=== PATIENT | male | born 1955 | race Caucasian/White ===

== ENCOUNTER → 2018-08-16 08:49 | Outpatient (CLI) | payer BC, SELFPAY ==
[2018-08-16 10:41] LABS: ALB/GLOB Ratio 1.1 RATIO (0.9-2.4); AST(SGOT) 22 U/L (15-37); Alanine Aminotransfer ALT/SGPT 25 U/L (16-61); Albumin, Serum 3.5 g/dL (3.2-5.0); Alkaline Phosphatase 58 U/L (45-117); Anion Gap 3 (5-15); BUN 22 mg/dL (7-18); BUN/Creat Ratio 25.7 RATIO (10-20); Calcium,Total 8.3 mg/dL (8.5-10.1); Chloride 111 mmol/L (98-107); Cholesterol 163 mg/dL (200); Creatinine, Serum 0.86 mg/dL (0.70-1.30); EST Glomerular Filtration Rate 96 mL/min (>60); Est Glom Filt Rate - Afr Amer 116 mL/min (>60); Globulin 3.1 g/dL (2.2-4.2); Glucose 85 mg/dL (74-106); High Density Lipoprotein 56 mg/dL; Potassium 4.4 mmol/L (3.5-5.1); Protein, Total 6.6 g/dL (6.4-8.2); Sodium Level 141 mmol/L (136-145); Triglycerides 41 mg/dL; Very Low Density Lipoprotein 8 mg/dL (5-40)
[2018-08-16 10:42] LABS: Vitamin D,25 Hydroxy 13.5 ng/mL (29.95-100.01)
== END ==
PROVIDERS: Family Provider Family Medicine; PCP Family Medicine; Referring Provider Family Medicine; Visit Provider Family Medicine
DX: Z00.00 Encounter for general adult medical examination without abnormal findings (principal); B35.1 Tinea unguium
CPT/HCPCS: 36415; 80053; 80061; 82306; 84153; G0103

== ENCOUNTER → 2019-08-11 16:16 | Outpatient (CLI) | payer BC, SELFPAY ==
--- NOTE | 2019-08-11 16:26 | MRI_ITS ---
STUDY: MRI LEFT ELBOW REASON FOR EXAM: Male, 64 years old. left elbow tendon tear, fall -- fall 1 week ago, pain and bruising prox forearm , elbow TECHNIQUE: Standardized fat and water weighted pulse sequences were obtained in all 3 orthogonal planes. COMPARISON: None. FINDINGS: There is a small volume joint effusion of the radio-capitellum articulation. Normal radial collateral ligamentous complex. There is a tendinosis of the common extensor tendon origin with a partial deep surface tear, series 4 images 12/ and 13/. There is a small volume joint effusion of the ulnotrochlear articulation. Normal ulnar collateral ligamentous complex. There is a tendinosis of the common flexor tendon origin with a partial deep surface tear, series 4 image 16/22. The cubital tunnel is normal, with a normal ulnar nerve. There is rupture of the biceps tendon with tear from the radial tuberosity and retraction of 5.4 cm, series 5 images 18/30 through . There is fluid at the musculotendinous junction. Normal lacertus fibrosis. Normal brachialis musculotendinous insertion. Normal triceps tendon and teno-osseous insertion. Normal olecranon process. The visualized distal humerus, proximal radius, and ulna are normal. The visualized muscles of the distal arm and proximal forearm are normal. The soft tissue structures are unremarkable. MRI/Upper Ext Joint Only(Routine) IMPRESSION: Biceps tendon rupture with retraction. Tendinosis with partial tears of the common extensor and common flexor tendons. Findings are consistent with recent injury. Electronically Signed: Niko Chaney MD at 17:50 EDT , Service support ,
== END ==
PROVIDERS: PCP Family Medicine; Visit Provider Orthopaedic Surgery
DX: S46.292A Other injury of muscle, fascia and tendon of other parts of biceps, left arm, initial encounter (principal)
CPT/HCPCS: 73221

== ENCOUNTER → 2019-08-15 08:18 | Outpatient (CLI) | payer BC, SELFPAY ==
--- NOTE | 2019-08-15 08:31 | EKG12_ITS ---
Test Reason : PRE OP Blood Pressure : / mmHG Vent. Rate : 074 BPM Atrial Rate : 074 BPM P-R Int : 166 ms QRS Dur : 088 ms QT Int : 374 ms P-R-T Axes : 020 -67 013 degrees QTc Int : 415 ms Normal sinus rhythm Left axis deviation Abnormal ECG Confirmed by ANNA SALGUERO ([id number]), copy editor KATHLEEN COLE ([id number]) on 08/18/2019 1:15:55 PM Referred By: Kehinde Hooks Confirmed By:ANNA SALGUERO
[2019-08-15 08:49] LABS: Hemoglobin 16.2 g/dL (13.0-16.5); Mean Corp Hgb Conc 34.5 g/dL (32-36); Platelet Count 246 K/mm3 (150-450); RBC Distribution Width SD 42.8 fl (35.1-43.9); Red Blood Count 5.22 M/mm3 (4.6-6.2); White Blood Count 6.7 K/mm3 (4.4-11.0)
[2019-08-15 09:26] LABS: Anion Gap 7 (5-15); BUN 18 mg/dL (7-18); BUN/Creat Ratio 17.1 RATIO (10-20); Chloride 109 mmol/L (98-107); Creatinine, Serum 1.05 mg/dL (0.70-1.30); EST Glomerular Filtration Rate 75 mL/min (>60); Est Glom Filt Rate - Afr Amer 91 mL/min (>60); Glucose 98 mg/dL (74-106); Potassium 3.9 mmol/L (3.5-5.1); Sodium Level 142 mmol/L (136-145)
== END ==
PROVIDERS: PCP Family Medicine; Referring Provider Orthopaedic Surgery; Visit Provider Orthopaedic Surgery
DX: Z01.818 Encounter for other preprocedural examination (principal); Z01.810 Encounter for preprocedural cardiovascular examination
CPT/HCPCS: 36415; 80048; 85027; 93005

== ENCOUNTER 2020-06-03 07:15 | Outpatient (RCR) | payer BC, SELFPAY ==
[2020-06-03] MEDS: COVID-19 VACC, MRNA(PFIZER)/PF 30 MCG/0.3 ML SYRINGE IM (07:59)
[2020-06-24] MEDS: COVID-19 VACC, MRNA(PFIZER)/PF 30 MCG/0.3 ML SYRINGE IM (07:35)
== END 2020-06-03 23:59 ==
LOC: IMMUN 07:15
PROVIDERS: PCP Family Medicine; Visit Provider Family Medicine
DX: Z23 Encounter for immunization (principal)
CPT/HCPCS: 0001A; 0002A

== ENCOUNTER 2021-07-01 15:52 | Outpatient (CLI) | payer BC, SELFPAY ==
[2021-07-01 18:11] LABS: AST(SGOT) 18 U/L (15-37); Alanine Aminotransfer ALT/SGPT 34 U/L (16-61); Albumin, Serum 3.7 g/dL (3.2-5.0); Alkaline Phosphatase 63 U/L (45-117); Anion Gap 5 (5-15); BUN 20 mg/dL (7-18); BUN/Creat Ratio 20.1 RATIO (10-20); Calcium,Total 8.7 mg/dL (8.5-10.1); Chloride 109 mmol/L (98-107); Cholesterol 164 mg/dL (200); EST Glomerular Filtration Rate 80 mL/min (>60); Est Glom Filt Rate - Afr Amer 96 mL/min (>60); Globulin 3.6 g/dL (2.2-4.2); Glucose 95 mg/dL (74-106); High Density Lipoprotein 51 mg/dL; Potassium 4.4 mmol/L (3.5-5.1); Protein, Total 7.3 g/dL (6.4-8.2); Sodium Level 139 mmol/L (136-145)
[2021-07-01 18:13] LABS: Vitamin D,25 Hydroxy 29.6 ng/mL
== END 2021-07-01 23:59 | disposition home or self-care (01) ==
LOC: MFPLAB 15:54
PROVIDERS: PCP Family Medicine; Referring Provider Family Medicine; Visit Provider Family Medicine
DX: Z13.220 Encounter for screening for lipoid disorders (principal); E55.9 Vitamin D deficiency, unspecified; N36.8 Other specified disorders of urethra
CPT/HCPCS: 36415; 80053; 81001; 82306; 82465; 83718

== ENCOUNTER 2021-07-04 11:04 | Outpatient (CLI) | payer BC, SELFPAY ==
[2021-07-04 11:08] LABS: Bacteria 0 SEEN /hpf (None Seen); Mucous, Urine 0 SEEN /hpf (<or=2+); Red Blood Cells-Urine 0 SEEN /hpf (0-5); Squamous Epithelial Cells - UA 0 SEEN /hpf (0-5); White Blood Cells 0 SEEN /hpf (0-5)
[2021-07-04 12:12] LABS: Color, Urine Yellow (Yellow); Glucose, Dipstick Normal (Normal); Ketone-Dipstick Negative (Negative); Leukocyte Esterase-Dipstick Negative /ul (Negative); Nitrite-Dipstick Negative (Negative); Occult Blood-Urine Negative /ul (Negative); Protein-Dipstick Negative (Negative); Urine Bilirubin Dipstick Negative (Negative); Urine Clarity Clear (Clear); Urine Urobilinogen Normal (Normal)
== END 2021-07-04 23:59 | disposition home or self-care (01) ==
PROVIDERS: PCP Family Medicine; Visit Provider Family Medicine
DX: N36.8 Other specified disorders of urethra (principal); E55.9 Vitamin D deficiency, unspecified; K21.9 Gastro-esophageal reflux disease without esophagitis; Z13.220 Encounter for screening for lipoid disorders
CPT/HCPCS: 81001

== ENCOUNTER → 2021-08-12 | Outpatient (CLI) | payer BC, SELFPAY | END | disposition home or self-care (01) | PROVIDERS: PCP Family Medicine; Visit Provider Family Medicine | DX: L02.91 Cutaneous abscess, unspecified (principal) | CPT/HCPCS: 87070; 87077; 87186; 87205 ==

== ENCOUNTER 2022-03-19 23:25 | Emergency (ER) | payer BC, SELFPAY ==
[2022-03-19 23:26] VITALS: BP 149/79; PULSE 98; RESP 18; TEMP 36.2; BMI 28.8
--- NOTE | 2022-03-20 06:42 | EX.ED.UPPERE ---
HPI History of Present Illness Chief Complaint: Laceration Narrative Narrative: 66-year-old male presenting with avulsion of the distal aspect of the lateral ring finger. Does not involve the nailbed. Patient states he was peeling potatoes and caught his finger on a mandolin. He states he was able to get bleeding fairly well controlled with direct pressure. [id number]. He is not on any anticoagulation. He has minimal pain. PFSH PFSH Allergy/AdvReac Type Severity Reaction Status Date / Time No Known Allergies Allergy Verified 03/19/22 23:29 Social History Smoking Status: Never smoker ROS ROS ED Constitutional Constitutional ED: Denies chills, fever(s) or sweats Eyes Eyes: Denies blurry vision or change in vision ENT ENT ED: Denies ear pain or sore throat Cardiovascular Cardiovascular: Denies chest pain, palpitations or racing heartbeat Respiratory/Chest Respiratory/Chest: Denies cough, dyspnea or sputum Gastrointestinal Gastrointestinal: Denies abdominal pain, constipation, diarrhea, nausea or vomiting Genitourinary Genitourinary ED: Denies dysuria, hematuria or urinary frequency Musculoskeletal Musculoskeletal: Denies arthralgias, myalgias or neck pain Integumentary Reports other Details: Avulsion laceration right ring finger ; Denies abscess, Abrasions or rash Neurologic Neurologic: Denies headache(s), paresthesias or weakness Psychiatric Psychiatric: Denies anxiety, depression, suicidal ideation or suicidal thoughts Endocrine Endocrinology: Denies polydipsia or polyuria EXAM Physical Exam Const Vital Signs: 03/19/22 23:26 03/19/22 23:26 Temperature 97.2 F L 97.2 F L Temperature Source Temporal Temporal Pulse Rate 98 98 Respiratory Rate 18 18 Blood Pressure 149/79 H 149/79 H Blood Pressure Mean 102 102 Positive well nourished HEENT Reports moist mucous membranes normocephalic Eyes PERRL and EOMs intact bilaterally Resp normal respiratory effort and clear to auscultation bilaterally Cardio regular rate and regular rhythm Extremity Extremity Narrative: 2 cm avulsion of the lateral aspect of the distal ring finger. Bleeding is well controlled. No bony involvement. No nailbed involvement. Minimally tender to palpation Neuro oriented x3 and CN's II-XII intact bilaterally Sensorium / Orientation: alert Motor Exam: strength 5/5 throughout Psych mental status grossly normal Skin Skin Narrative: As described above MDM MDM MDM Narrative Medical decision making narrative: Patient with avulsed laceration to the tip of his right ring finger. There is nothing here that can be sutured. Surgicel and a direct pressure dressing were applied. This did control bleeding. He was given a leftover Surgicel for home. His tetanus is up-to-date. Patient was counseled this might bleed a little bit within the next week or so. He is counseled to apply direct pressure over this wound until it stops bleeding. He was shown how to do this. Return precautions were discussed. Impression: 1. 2 cm avulsion laceration right ring finger Lab Data Attestation: I reviewed the patient's lab results. Discharge Plan Triage Chief Complaint: Laceration ED Provider: Piero Ashley Dx/Rx/DC Orders Instructions: ED Skin Avulsion Primary Care Provider: Kendall Lance Referrals: Kendall Lance MD [Primary Care Provider] - Disposition Disposition: Home, Self Care Discharge Date/Time: 03/20/22 00:24
== END 2022-03-20 00:24 | disposition home or self-care (01) ==
LOC: ED 03-20 00:24
PROVIDERS: Emergency Provider Student in an Organized Health Care Education/Training Program; PCP Family Medicine; Visit Provider Student in an Organized Health Care Education/Training Program
DX: S61.214A Laceration without foreign body of right ring finger without damage to nail, initial encounter (principal); W23.0XXA Caught, crushed, jammed, or pinched between moving objects, initial encounter
CPT/HCPCS: 99282

== ENCOUNTER → 2023-01-25 | Outpatient (CLI) | payer BC, SELFPAY ==
[2023-01-25 13:39] LABS: Anion Gap 5 (5-15); BUN 20 mg/dL (7-18); BUN/Creat Ratio 20.7 RATIO (10-20); Calcium,Total 8.7 mg/dL (8.5-10.1); Chloride 109 mmol/L (98-107); Cholesterol 156 mg/dL (200); Creatinine, Serum 0.97 mg/dL (0.70-1.30); EST Glomerular Filtration Rate 82 mL/min (>60); Est Glom Filt Rate - Afr Amer 99 mL/min (>60); Glucose 97 mg/dL (74-106); High Density Lipoprotein 52 mg/dL; PSA,Total - Annual Screen 3.08 ng/mL (0.00-4.00); Potassium 4.3 mmol/L (3.5-5.1); Sodium Level 140 mmol/L (136-145); Triglycerides 54 mg/dL; Very Low Density Lipoprotein 11 mg/dL (5-40)
== END | disposition home or self-care (01) ==
LOC: MFPLAB 11:10
PROVIDERS: PCP Family Medicine; Visit Provider Family Medicine
DX: Z00.00 Encounter for general adult medical examination without abnormal findings (principal)
CPT/HCPCS: 36415; 80048; 80061; 84153; G0103

== ENCOUNTER 2023-04-30 09:52 | Day surgery (SDC) | payer BC, SELFPAY ==
[2023-04-30] VITALS (16 sets, daily range): BP systolic 71–136; BP diastolic 44–89; PULSE 64–106; RESP 16–20; TEMP 36.5–37.1; O2SAT 93–99; BMI 27.3
--- NOTE | 2023-04-30 10:00 | PCM.HP.BLA ---
History and Physical Date of Admission: 04/30/23 Intake Vital Signs 12/19/2312:22 04/03/2406:54 Height 5 ft 1 in 5 ft 11 in Weight: 200 lb 200 lb BMI 37.8 27.8 BP 131/72 H 156/75 H Blood Pressure Location Rt brachial Lt brachial Position Sitting Sitting Respiration 17 16 Pulse 80 Pulse Source Monitor Temp 97.2 F L Temp Source Temporal Pulse Oximetry (%) 99 Oxygen Delivery Method room air Intake Visit Reasons: Update H&P Chief Complaint: right inguinal hernia [employer] Required: No Is patient in pain?: No Allergies No Known Allergies Allergy (Verified 04/03/23 07:54) Medications cholecalciferol (vitamin D3) 75 mcg (3,000 unit) tablet 75 mcg PO DAILY 12/19/22 [History Confirmed 04/03/23] PFSH Medical History Biceps tendon tear Inguinal hernia Family History Father Cancer prostate Social History Smoking Status: Never smoker substance use type: does not use HPI HPI HPI: Patient is here to update his history and physical before hernia surgery. Patient has right inguinal hernia reports there is been no changes with his hernia. He does have a chronic cough since his last illness at [facility]. Patient also notes that he is going to see a dentist this week for broken tooth. Patient still notes reducible right inguinal hernia with no symptoms on the left side. ROS General General: No weight change, appetite, fatigue, colon cancer, breast cancer or weakness HEENT HEENT: No difficulty swallowing, eye injury, eye surgery, swollen glands or hoarseness Endo Endocrine: No thyroid disease, diabetes mellitus, thyroid cancer, Hair loss, heat intolerance or cold intolerance Skin Skin: No rash or changing moles Musc Musculoskeletal: No back problems, arthritis, rheumatoid arthritis, gout or joint pain Cardio Cardiovascular: No murmur, pacemaker, heart disease, atrial fibrillation, high blood pressure, heart attack, heart stent, palpitations, shortness of breat with exertion or chest pain Psych Psychiatric: No depression, anxiety or hearing voices Resp Respiratory: No shortness of breath, No sleep apnea, No cough, No COPD, No asthma, No emphysema and No wheezing Gastro Gastrointestinal: No abdominal pain, No nausea or vomiting, No diarrhea, No constipation, No blood in stool, No acid reflux, No hemorrhoids, No ulcers, No gallbladder problem and No black,tarry stools Kelechi Hematologic: No blood thinners, No blood disorders, No bleeding, No anemia and No blood clots Neuro Neurologic: No system reviewed and no additional complaints, except as documented, No as per HPI, No abnormal gait, No abnormal hearing, No abnormal movements, No abnormal speech, No behavioral changes, No burning sensations, No confusion, No convulsions, No disequilibrium, No dizziness, No localized weakness, No frequent falls, No headache(s), No lack of coordination, No loss of vision, No memory loss, No numbness, No other visual disturbances, No radicular pain, No restless legs, No sensory deficit, No syncope, No tingling, No tremor(s), No weakness and No other Exam Const General: cooperative Orientation: alert and oriented x3 HENMT Head: normal to inspection Neck Neck: normal visual inspection and full ROM Chest Chest palpation & inspection: normal inspection of the chest Resp Effort & Inspection: normal respiratory effort Auscultation: clear to auscultation bilaterally Cardio Rate: regular rate Rhythm: regular rhythm GI Inspection: non-distended Palpation: soft, hernia indirect inguinal on the right and nontender Skin General: no rashes or lesions noted Neuro General: patient alert and patient oriented x3 Extrem General: full ROM Psych Appearance: grossly normal Mental Status: mental status grossly normal Assessment and Plan Assessment and Plan (1) Inguinal hernia: Status: Acute Qualifiers: Obstruction and gangrene presence: without obstruction or gangrene Laterality: unilateral Recurrence: non-recurrent Qualified Code(s): K40.90 - Unilateral inguinal hernia, without obstruction or gangrene, not specified as recurrent Plan: The patient has a right inguinal hernia which is reducible. He was waiting until winter to have this fixed and he presents for updated the H&P before surgery. I discussed robotic assisted laparoscopic right inguinal hernia repair with mesh once more with the patient. I answered all of his questions. I will plan for surgery later this month. Michael August MD Pager: [facility] [address] [place] [address] [address] [place] [address] Office: I have examined the patient and the H&P has been reviewed. There are no clinical changes since date of exam.
[2023-04-30] MEDS: Lactated Ringers 1,000 ML 15 ML IV ×3 (10:18→14:20)
--- OUTSIDE RECORDS SUMMARY | 2023-04-30 10:48 | XMS RPT_ITS | CCD ---
Author Name Unknown Address [address] [facility] [address] [place] [address] Organization [facility] Care Team Providers Care Silk Winding Machine Operator Name Role Phone Kendall Vaughan MD Primary Care Provider KENDALL VAUGHAN Primary Care Unavailable KENDALL VAUGHAN Primary Care Unavailable Medications Completed/Discontinued Medications Medication Drug Class(es) Dates Sig (Normalized) Sig (Original) cholecalciferol, vitamin D3, (VITAMIN D3 ORAL) (3 sources) cholecalciferol, vitamin D3, (VITAMIN D3 ORAL) Take by mouth. 0 Active Problems Problem Classification Problem Date Documented Da te Episodic/Chronic Genitourinary symptoms and ill-defined conditions (1 source) Isaias hematuria; Translations: [Gross hematuria] 12-09-2022 Episodic Results Test Name Value Interpretation Reference Range Facil ity Vital Signs Date Time Vital Sign Value Performing Clinician Cinthia perez 12-09-2022 09:20-0400 Body temperature 98.4 [degF] Nicole Praisler-Wood PREMIUM SERVICE REPRESENTATIVE.COMMERCIAL FISHING VESSEL OPERATOR Work Phone: [facility] 12-09-2022 09:20-0400 Body weight 90.54 kg Nicole Praisler-Wood PREMIUM SERVICE REPRESENTATIVE.COMMERCIAL FISHING VESSEL OPERATOR Work Phone: [facility] 12-09-2022 09:20-0400 Diastolic blood pressure 92 mm[Hg] Nicole Praisler-Wood PREMIUM SERVICE REPRESENTATIVE.COMMERCIAL FISHING VESSEL OPERATOR Work Phone: [facility] 12-09-2022 09:20-0400 Heart rate 72 /min Nicole Praisler-Wood PREMIUM SERVICE REPRESENTATIVE.COMMERCIAL FISHING VESSEL OPERATOR Work Phone: [facility] 12-09-2022 09:20-0400 Respiratory rate 16 /min Nicole Praisler-Wood PREMIUM SERVICE REPRESENTATIVE.COMMERCIAL FISHING VESSEL OPERATOR Work Phone: [facility] 12-09-2022 09:20-0400 SaO2% (BldA) [Mass fraction] 98 % Nicole Henderson APRN.DARLING Work Phone: [facility] 12-09-2022 09:20-0400 Systolic blood pressure 142 mm[Hg] Nicole Henderson APRN.DARLING Work Phone: [facility] Encounters Encounter Date Encounter Type Care Provider Facility Start: 03-12-2023 Telephone encounter Sidney dumont PREMIUM SERVICE REPRESENTATIVE.DARLING Work Phone: [facility] Procedures Date Procedure Procedure Detail Performing Clinician Start: 12-09-2022 Urnls dip stick/tabl et rgnt auto w/o microscopy Nicole Henderson APRN.DARLING Work Phone: Plan of Treatment Date Care Activity Detail Author Start: 09-01-2031 Urine microalbumin profile DTaP,Tdap,Td Vaccine (3 - Td or Tdap) [facility] Start: 12-01-2022 Influenza vaccination INFLUENZA (#1) [facility] Start: 05-21-2022 COVID-19 VACCINE (5 - Pfizer series) COVID-19 VACCINE (5 - Pfizer series) [facility] Start: 04-02-2022 ADVANCE DIRECTIVE DISCUSSION ADVANCE DIRECTIVE DISCUSSION [facility] Start: 04-02-2022 DEPRESSION ASSESSMENT DEPRESSION ASSESSMENT [facility] Start: 06-23-2019 PNEUMOCOCCAL: 65+ (1 - PCV) PNEUMOCOCCAL: 65+ (1 - PCV) [facility] Start: 2014 RSV Vaccine (1 - 1-dose 60+ series) RSV Vaccine (1 - 1-dose 60+ series) [facility] Start: 2009 PROSTATE CANCER SCREENING DISCUSSION PROSTATE CANCER SCREENING DISCUSSION [facility] Start: 2004 SHINGRIX VACCINE (1 of 2) SHINGRIX VACCINE (1 of 2) [facility] Start: 06-23-1999 COLOGUARD (FIT-DNA) COLOGUARD (FIT-DNA) [facility] Start: 06-23-1999 Colonoscopy COLONOSCOPY [facility] Start: 06-23-1999 COLORECTAL CANCER SCREENING COLORECTAL CANCER SCREENING [facility] Start: 06-23-[address] COLONOGRAPHY [facility] Start: 06-23-1999 DIABETES SCREEN DIABETES SCREEN [facility] Start: 06-23-1999 Diabetes Screening Diabetes Screening [facility] Start: 06-23-1999 FECAL OCCULT BLOOD FECAL OCCULT BLOOD [facility] Start: 06-23-1999 SIGMOIDOSCOPY SIGMOIDOSCOPY [facility] Start: 1989 Lipid 1996 panel - Serum or Plasma Lipid Screening [facility] Start: 1989 LIPID SCREEN LIPID SCREEN [facility] Start: 1973 Urine microalbumin profile DTAP,TDAP,TD (1 - Tdap) [facility] Start: 1972 HEPATITIS C SCREENING HEPATITIS C SCREENING [facility] Bacteria identified in Urine by Culture URINE CULTURE Microbiology Routine Gross hematuria 12/09/2022 10:59 AM EDT [facility] Work Phone: Payers Date Payer Category Payer Unknown [employer] PPO OOS [id number] 2022-Present [phone] [address] [place] [address] PPO [id number] 2022 Unknown [id number] Social History Date Type Detail Facility Start: 03-11-2023 Tobacco smoking stat [facility] Never smoked tobacco [facility] Work Phone: Start: 10-04-2006 End: 03-11-2023 Alcohol intake Current non-drinker of alcohol (finding) [facility] Start: 1955 Sex Assigned At Not on file [facility] Start: 03-11-2023 [facility] Start: 03-11-2023 Tobacco use and exposure Smokeless tobacco non-user [facility] Start: 03-11-2023 History of Social function [facility] Start: 1955 Sex Assigned At Male [facility] Start: 02-10-2023 Gender identity Identifies as male gender (finding) [facility] Start: 02-10-2023 Sexual orientation Heterosexual (erma cruz) [facility] Note 03-12-2023 Telephone Encounter - Mireya Freeman LPN - 03/12/2023 9:46 AM ESTTelephone Encounter - Sidney Weir APRN.CNP - 03/12/2023 7:27 AM EST Note Date & Type Note Facility 03-12-2023 Miscellaneous Notes Formattin g of this note might be different from the original. Spoke with pt and information listed below given. Pt verbalizes understanding. Mireya Freeman LPN Please notify positive for covid. Patient can contact pcp to discuss oral treatment for covid if desired. documented in this encounter [facility] Progress note 03-11-2023 Note Date & Type Note Facility 03-11-2023 Note HNO ID: [id number] Author: Leyda Angel APRN.DARLING Service: ? Author Type: Nurse Practitioner Type: Progress Notes Filed: 03/11/2023 12:27 PM Note Text: This note was created using [employer]akSoftriter. Subjective Hans Luna is a 67 year old male. 67 year old male with no significant PMH presents for illness. Acute onset yesterday +headache +frontal 10/09 +nasal congestion +leg cramps and pain +cough +fatigue +fever 103 Denies N/V/D Taking Tylenol The history is provided by the patient. No foreign language stenographer was used. URI He complains of cough. There is no chest tightness, difficulty breathing, frequent throat clearing, hemoptysis, hoarse voice, shortness of breath, sputum production or wheezing. This is a new problem. The current episode started yesterday. The problem occurs constantly. The problem has been unchanged. The cough is non-productive. Associated symptoms include a fever, headaches, malaise/fatigue, myalgias, nasal congestion, postnasal drip, rhinorrhea and sneezing. Pertinent negatives include no appetite change, chest pain, dyspnea on exertion, ear congestion, ear pain, orthopnea, PND, sore throat, sweats, trouble swallowing or weight loss. His symptoms are aggravated by nothing. His symptoms are alleviated by nothing. He reports no improvement on treatment. There are no known risk factors for lung disease. There is no history of asthma, bronchiectasis, bronchitis, COPD, emphysema or pneumonia. No past medical history on file. PAST SURGICAL HISTORY Procedure Laterality Date NONE ALLERGIES Patient has no known allergies. MEDICATIONS cholecalciferol, vitamin D3, (VITAMIN D3 ORAL) Take by mouth. ketoconazole 200 mg ORAL Tab ii now; ii at 7 AND 14 days--with orange juice or carbonated beverage (Patient not taking: Reported on 12/09/2022) selenium sulfide 2.5 % TOPICAL Sham qod face, chest, back, scalp as second lather--lather, wait 5 minutes, rinse off (Patient not taking: Reported on 12/09/2022) ketoconazole 2 % TOPICAL Crea q day ears (Patient not taking: Reported on 12/09/2022) hydrocortisone 2.5 % TOPICAL Crea qhs ears (Patient not taking: Reported on 12/09/2022) FAMILY HISTORY Problem Relation Age of Onset None Mother None Father Social History Tobacco Use Smoking status: Never Smokeless tobacco: Never Substance Use Topics Alcohol use: No Review of Systems Constitutional: Positive for fever and malaise/fatigue. Negative for appetite change and weight loss. HENT: Positive for congestion, postnasal drip, rhinorrhea and sneezing. Negative for ear pain, hoarse voice, sore throat and trouble swallowing. Eyes: Negative for pain, discharge and itching. Respiratory: Positive for cough. Negative for apnea, hemoptysis, sputum production, chest tightness, shortness of breath and wheezing. Cardiovascular: Negative for chest pain, dyspnea on exertion, palpitations, leg swelling and PND. Gastrointestinal: Negative for abdominal pain, diarrhea, nausea and vomiting. Musculoskeletal: Positive for myalgias. Negative for arthralgias and back pain. Skin: Negative for color change, pallor, rash and wound. Allergic/Immunologic: Negative for environmental allergies, food allergies and immunocompromised state. Neurological: Positive for headaches. Negative for dizziness and facial asymmetry. Hematological: Negative for adenopathy. Does not bruise/bleed easily. Psychiatric/Behavioral: Negative for agitation and behavioral problems. Objective BP 148/81 Pulse 89 Temp 37.6 ?C (99.7 ?F) Resp 20 Wt 91.6 kg (202 lb) SpO2 99% Physical Exam Vitals and nursing note reviewed. Constitutional: General: He is not in acute distress. Appearance: Normal appearance. He is not ill-appearing, toxic-appearing or diaphoretic. HENT: Head: Normocephalic and atraumatic. Right Ear: External ear normal. Left Ear: External ear normal. Nose: Congestion present. No rhinorrhea. Mouth/Throat: Mouth: Mucous membranes are moist. Pharynx: Oropharynx is clear. Posterior oropharyngeal erythema present. No oropharyngeal exudate. Eyes: General: Right eye: No discharge. Left eye: No discharge. Extraocular Movements: Extraocular movements intact. Conjunctiva/sclera: Conjunctivae normal. Pupils: Pupils are equal, round, and reactive to light. Cardiovascular: Rate and Rhythm: Normal rate and regular rhythm. Pulses: Normal pulses. Heart sounds: Normal heart sounds. No murmur heard. No friction rub. No gallop. Pulmonary: Effort: Pulmonary effort is normal. No respiratory distress. Breath sounds: Normal breath sounds. No stridor. No wheezing, rhonchi or rales. Chest: Chest wall: No tenderness. Abdominal: General: Abdomen is flat. There is no distension. Palpations: Abdomen is soft. There is no mass. Tenderness: There is no abdominal tenderness. There is no guarding or rebound. Hernia: No hernia is present. Musculoskele (more content not included)... [facility] Note 12-10-2022 Telephone Encounter - Meseret Dorsey - 12/10/2022 1:48 PM EDTTelephone Encounter - Meseret Dorsey - 12/10/2022 1:47 PM EDT Note Date & Type Note Facility 12-10-2022 Miscellaneous Notes Formattin g of this note might be different from the original. Patient given results and verbalized understanding of instructions given. Meseret Doresy ----- Message from Nicole Henderson APRN.CNP sent at 12/10/2022 1:19 PM EDT ----- Please advise patient the urine culture was negative. Recommend follow up with his PCP to ensure hematuria has resolved. Nicole Henderson APRN.CNP documented in this encounter [facility] Progress note 12-09-2022 Note Date & Type Note Facility 12-09-2022 Note HNO ID: [id number] Author: Nicole Henderson APRN.COMMERCIAL FISHING VESSEL OPERATOR Service: ? Author Type: Nurse Practitioner Type: Progress Notes Filed: 12/09/2022 11:02 AM Note Text: Subjective Hematuria Irritative symptoms do not include frequency or urgency. Pertinent negatives include no abdominal pain, chills, dysuria, fever, flank pain, nausea or vomiting. Hans Luna is a 67 year old male who presents with blood in his urine. This happened last night after running for 3 miles then going for a walk. He denies any symptoms other than hematuria and that seems to be resolving, states his urine is almost normal this morning. Review of Systems Constitutional: Negative for chills and fever. Respiratory: Negative. Cardiovascular: Negative. Gastrointestinal: Negative for abdominal pain, nausea and vomiting. Genitourinary: Positive for hematuria. Negative for dysuria, flank pain, frequency and urgency. Musculoskeletal: Negative for back pain. BP 142/92 Pulse 72 Temp 36.9 ?C (98.4 ?F) Resp 16 Wt 90.5 kg (199 lb 9.6 oz) SpO2 98% No past medical history on file. PAST SURGICAL HISTORY Procedure Laterality Date NONE ALLERGIES Patient has no known allergies. MEDICATIONS cholecalciferol, vitamin D3, (VITAMIN D3 ORAL) Take by mouth. ketoconazole 200 mg ORAL Tab ii now; ii at 7 AND 14 days--with orange juice or carbonated beverage (Patient not taking: Reported on 12/09/2022) selenium sulfide 2.5 % TOPICAL Sham qod face, chest, back, scalp as second lather--lather, wait 5 minutes, rinse off (Patient not taking: Reported on 12/09/2022) ketoconazole 2 % TOPICAL Crea q day ears (Patient not taking: Reported on 12/09/2022) hydrocortisone 2.5 % TOPICAL Crea qhs ears (Patient not taking: Reported on 12/09/2022) FAMILY HISTORY Problem Relation Age of Onset None Mother None Father Social History Tobacco Use Smoking status: Never Substance Use Topics Alcohol use: No Objective Physical Exam Vitals and nursing note reviewed. Constitutional: General: He is not in acute distress. Appearance: Normal appearance. He is not ill-appearing. Cardiovascular: Rate and Rhythm: Normal rate and regular rhythm. Heart sounds: Normal heart sounds. Pulmonary: Effort: Pulmonary effort is normal. No respiratory distress. Breath sounds: Normal breath sounds. No wheezing or rales. Abdominal: General: There is no distension. Palpations: Abdomen is soft. There is no mass. Tenderness: There is no abdominal tenderness. There is no right CVA tenderness, left CVA tenderness or guarding. Skin: General: Skin is warm and dry. Neurological: Mental Status: He is alert. ASSESSMENT/PLAN: 1. Gross hematuria - ICD9: 599.71, ICD10: R31.0 - UA DIP, URINE (POC)- positive for small amount of bilirubin, large amount of blood, and 30 mg/dL protein. Send for culture. Treat if indicated by culture results. If negative, recommend follow up with PCP or urology to ensure hematuria has resolved. - URINE CULTURE - Follow-up with your PCP in 3-5 days if symptoms have not improved or sooner if symptoms worsen - Discussed red flags and need for immediate medical evaluation if any occur. - Discussed supportive care treatment with fluids, rest and analgesia. - Discussed expected course of illness Nicole Henderson APRN.CNP [facility] Instructions 12-09-2022 Patient Instructions Note Date & Type Note Facility 12-09-2022 Instructions Nicole Henderson APRN.CNP - 12/09/2022 10:58 AM EDT ASSESSMENT/PLAN: 1. Gross hematuria - ICD9: 599.71, ICD10: R31.0 - UA DIP, URINE (POC)- positive for small amount of bilirubin, large amount of bleed, and 30 mg/dL protein. Send for culture. Treat if indicated by culture results. If negative, recommend follow up with PCP or urology to ensure hematuria has resolved. - URINE CULTURE - Follow-up with your PCP in 3-5 days if symptoms have not improved or sooner if symptoms worsen - Discussed red flags and need for immediate medical evaluation if any occur. - Discussed supportive care treatment with fluids, rest and analgesia. - Discussed expected course of illness Nicole Henderson APRN.CNP HEMATURIA What is hematuria? Hematuria is the presence of red blood cells in the urine. In microscopic hematuria , the urine appears normal to the naked eye, but examination with a microscope shows a number of red blood cells. Gross hematuria can be seen with the naked eye-the urine is red, pink, or the color of cola. What causes hematuria? Several conditions can cause hematuria. For example, exercise may cause hematuria that goes away in 24 hours. Many people have hematuria without any other related problems. Often no specific cause can be found. But because hematuria may be the result of a tumor or other serious problem, a doctor should be consulted. How is hematuria diagnosed? To find the cause of hematuria, or to rule out certain causes, the doctor may order a series of tests, including urinalysis, blood tests, kidney imaging studies, and cystoscopic examination. A urinalysis is the examination of urine for various cells and chemicals. In addition to finding red blood cells, the doctor may find white blood cells that signal a urinary tract infection or casts, which are groups of cells molded together in the shape of the kidneys' tiny filtering tubes, which signal kidney disease. Excessive protein in the urine also signals kidney disease. FISH is a noninvasive, urine-based genetic test for the diagnosis and surveillance of bladder cancer. It provides the most sensitive detection of bladder cancer available today - and can detect bladder cancer up to six months sooner than other tests. Blood tests may reveal kidney disease if the blood contains high levels of wastes that the kidneys are supposed to remove. Kidney imaging studies include ultrasound, computerized tomography (CT) scan, or intravenous pyelogram (IVP). An IVP is an x ray of the urinary tract. Imaging studies may reveal a tumor, a kidney or bladder stone, an enlarged prostate or other blockage to the normal flow of urine. A cystoscope can be used to evaluate and visualize inside of the bladder. It has a tiny camera at the end of a thin tube, which is inserted through the urethra. A cystoscope may provide a better view of a tumor or bladder stone than can be seen in an IVP. How is hematuria treated? Treatment for hematuria depends on the cause. If no serious condition is causing the hematuria, no treatment is necessary. documented in this encounter [facility] History of Present illness Narrative 12-09-2022 Nicole Henderson APRN.COMMERCIAL FISHING VESSEL OPERATOR - 12/09/2022 9:38 AM EDT Note Date & Type Note Facility 12-09-2022 History of Presen t illness Narrative Subjective Hematuria Irritative symptoms do not include frequency or urgency. Pertinent negatives include no abdominal pain, chills, dysuria, fever, flank pain, nausea or vomiting. Hans Luna is a 67 year old male who presents with blood in his urine. This happened last night after running for 3 miles then going for a walk. He denies any symptoms other than hematuria and that seems to be resolving, states his urine is almost normal this morning. Review of Systems Constitutional: Negative for chills and fever. Respiratory: Negative. Cardiovascular: Negative. Gastrointestinal: Negative for abdominal pain, nausea and vomiting. Genitourinary: Positive for hematuria. Negative for dysuria, flank pain, frequency and urgency. Musculoskeletal: Negative for back pain. BP 142/92 Pulse 72 Temp 36.9 C (98.4 F) Resp 16 Wt 90.5 kg (199 lb 9.6 oz) SpO2 98% No past medical history on file. PAST SURGICAL HISTORY Procedure Laterality Date NONE ALLERGIES Patient has no known allergies. MEDICATIONS cholecalciferol, vitamin D3, (VITAMIN D3 ORAL) Take by mouth. ketoconazole 200 mg ORAL Tab ii now; ii at 7 & 14 days--with orange juice or carbonated beverage (Patient not taking: Reported on 12/09/2022) selenium sulfide 2.5 % TOPICAL Sham qod face, chest, back, scalp as second lather--lather, wait 5 minutes, rinse off (Patient not taking: Reported on 12/09/2022) ketoconazole 2 % TOPICAL Crea q day ears (Patient not taking: Reported on 12/09/2022) hydrocortisone 2.5 % TOPICAL Crea qhs ears (Patient not taking: Reported on 12/09/2022) FAMILY HISTORY Problem Relation Age of Onset None Mother None Father Social History Tobacco Use Smoking status: Never Substance Use Topics Alcohol use: No Objective Physical Exam Vitals and nursing note reviewed. Constitutional: General: He is not in acute distress. Appearance: Normal appearance. He is not ill-appearing. Cardiovascular: Rate and Rhythm: Normal rate and regular rhythm. Heart sounds: Normal heart sounds. Pulmonary: Effort: Pulmonary effort is normal. No respiratory distress. Breath sounds: Normal breath sounds. No wheezing or rales. Abdominal: General: There is no distension. Palpations: Abdomen is soft. There is no mass. Tenderness: There is no abdominal tenderness. There is no right CVA tenderness, left CVA tenderness or guarding. Skin: General: Skin is warm and dry. Neurological: Mental Status: He is alert. ASSESSMENT/PLAN: 1. Gross hematuria - ICD9: 599.71, ICD10: R31.0 - UA DIP, URINE (POC)- positive for small amount of bilirubin, large amount of blood, and 30 mg/dL protein. Send for culture. Treat if indicated by culture results. If negative, recommend follow up with PCP or urology to ensure hematuria has resolved. - URINE CULTURE - Follow-up with your PCP in 3-5 days if symptoms have not improved or sooner if symptoms worsen - Discussed red flags and need for immediate medical evaluation if any occur. - Discussed supportive care treatment with fluids, rest and analgesia. - Discussed expected course of illness Nicole Henderson APRN.COMMERCIAL FISHING VESSEL OPERATOR documented in this encounter [facility] Evaluation note Note Date & Type Note Facility documented in this encounter [facility] Health Concerns Infection Onset Date Last Indicated Resolved Time COVID-19 Confirmed 03/11/2023 03/11/2023 Summary Purpose Family History No Family History Records Found Advance Directives No Advanced Directives Records Found Additional Source Comments Source Comments (unrecognize d section and content) In the event this informatio n is protected by the Federal Confidentiality of Alcohol and Drug Abuse Patient Records regulations: The Federal rules restrict any use of the information to criminally investigate or prosecute any alcohol or drug abuse patient.[facility] the event this information is protected by the Federal Confidentiality of Alcohol and Drug Abuse Patient Records regulations: The Federal rules restrict any use of the information to criminally investigate or prosecute any alcohol or drug abuse patient.[facility] Hospital[facility] the event this information is protected by the Federal Confidentiality of Alcohol and Drug Abuse Patient Records regulations: The Federal rules restrict any use of the information to criminally investigate or prosecute any alcohol or drug abuse patient[facility] Reason for Visit (unrecogniz ed section and content) Reason Comments Results Care Teams (unrecognized sec tion and content) Silk Winding Machine Operator Relationship Specialty Start Date End Date Kendall Vaughan MD [address] [place] [address] [address] [place] [address] PCP - General Family Medicine 12/09/22 Silk Winding Machine Operator Relationship Specialty Start Date End Date Kendall Vaughan MD [address] [place] [id number] PCP - General Family Medicine 12/09/22 (unrecognized sect ion and content) No Status Records Found INFORMATION SOURCE (unrecogn ized section and content) FOR RECORDS PERTAINING TO PATIENTS WHO ARE OR HAVE BEEN ENROLLED IN A CHEMICAL DEPENDENCY/SUBSTANCEABUSE PROGRAM, SOME INFORMATION MAY BE OMITTED. This clinical summary was aggregated from multiple sources. Caution should be exercised in using it in the provision of clinical care. This summary normalizes information from multiple sources, and as a consequence, information in this document may materially change the coding, format and clinical context of patient data. In addition, data may be omitted in some cases. CLINICAL DECISIONS SHOULD BE BASED ON THE PRIMARY CLINICAL RECORDS. [facility]. provides no warranty or guarantee of the accuracy or completeness of information in this document.
[2023-04-30] MEDS: Cefazolin 2 GM in 0.9% Normal Saline (100mL Bag) 100 ML IV (11:09)
[2023-04-30] MEDS: Bupivacaine Mpf 0.5% 30 ML VIAL (12:04)
--- NOTE | 2023-04-30 12:07 | OP.PCM_ITS ---
Report of Operation Date of Procedure: 04/30/23 Pre-Operative Diagnosis: Right inguinal hernia Post-Operative Diagnosis: Same Surgery/Procedure Performed:: Robotic assisted laparoscopic right inguinal hernia repair with mesh Type of Anesthesia: General/Regional Specimen's removed: None Estimated Blood Loss (mL): 10 Description of Procedure: Patient was brought back to the operating room and general anesthesia was induced. The abdomen was prepped and draped in usual sterile fashion. Incision was made superior to the umbilicus and the fascia was grasped and elevated. A Veress needle was placed into the abdomen and a drop test was performed. Next the abdomen was then inflated to 15 mmHg. The Veress needle was removed. Port was placed into the abdomen. Camera was placed in the abdomen there were no injuries from entry. The patient was placed in Trendelenburg position. Patient had a right inguinal hernia and no left inguinal hernia. Under direct visua lization two 8 mm ports were placed on the lateral sidewalls. The robot was then docked. An incision was made in the peritoneum in the right lower quadrant and dissection was carried inferiorly. The hernia sac was reduced and all of its attachments were taken down. Once it was fully reduced dissection was carried most posteriorly. Next a piece of ProGrip mesh was unfolded in the right groin and completely covered both hernia areas. Next the peritoneum was reapproximated using a running 3 OV lock suture. There were 2 openings in the peritoneum that were closed with interrupted 3-0 Vicryl sutures. At the end of the case the mesh was completely covered by peritoneum. Next the the incisions were injected with local anesthetic. Robot was undocked and the ports were removed and the abdomen was allowed to desufflate. Closed with interrupted 4-0 Monocryl sutures. Steri-Strips and bandages were applied. Scrotum was checked at the end of the case and contained testicles. Patient was awoken and taken to PACU in stable condition. Grafts/Implants Used: ProGrip mesh in the right inguinal region Admit VTE Documentation VTE Mechan Device Prophylaxis: SCD's
--- NOTE | 2023-04-30 12:11 | DCINST_ITS ---
Discharge Instructions Procedure Hernia Diet Discharge Diet: Light diet - advance as tolerated Activity Discharge Activity: May Not Drive (for 2-3 days or while taking narcotic pain meds.) and May Shower (with the bandage in place 1-2 days after surgery.) Lifting Restrictions: 20 pounds for 4 weeks. Additional Activity Instructions:: Climbing stairs is fine, walking is encouraged. Sitting in bed may be uncomfortable. Sitting up using your lateral muscles (sitting up sideways) is usually more comfortable. Do not drive, work heavy equipment of sign legal documents for 24 hours. If your hernia repair was an inguinal repair, you may have scrotal swelling, an ice pack and/or athletic support can provide more comfort. Pain medications may cause nausea, you should typically eat light foods as you take your pain medications. Pain medications may also cause constipation. If you have difficulty with this, discuss with your doctor. Dressing / Incision Call your doctor if your incision/area has: Continuous Slow Oozing, Sudden Increased Bleeding, Increased Pain/ Swelling, Increased Redness and Foul Smelling Discharge Call your doctor if you observe: Fever of 101 or Higher Suture Line Care: Avoid Pulling/Pushing and Avoid Pinching/Bending Remove Dressing in: 2 days (Remove clear bandages in 2 days, remove Steri-Strips in 7 to 10 days.) Additional Dressing/Incision Instructions:: Alternate ibuprofen and Tylenol for pain control, oxycodone for breakthrough pain. Follow Up Care Please Follow Up With: Michael August MD When: Please call to schedule 2 week follow up appointment. [phone] Test Results: Test results from this visit will be discussed in further detail at your follow- up appointment, if applicable. Discharge Plan Admission Attending Provider: Michael August Primary Care Provider: Kendall Lance Discharge Orders/Prescriptions Prescriptions: New acetaminophen 325 mg Tablet 650 mg PO Q4H PRN PRN (Reason: Pain Or Fever) Qty: 0 0RF oxycodone 5 mg Tablet 5 - 10 mg PO Q4H PRN PRN (Reason: Pain Score 4-10/10) 5 Days Qty: 10 0RF No Action cholecalciferol (vitamin D3) 75 mcg (3,000 unit) tablet 75 mcg PO DAILY acetaminophen [Tylenol] 325 mg capsule 650 mg PO Q4H PRN (Reason: pain) Referrals / Follow Up: Kendall Lance MD [Primary Care Provider] - Disposition Disposition (needs filled in before D/C Order can be placed): Home, Self Care
[2023-04-30] MEDS: oxyCODONE 5 MG Tablet PO (14:19)
== END 2023-04-30 15:41 | disposition home or self-care (01) ==
LOC: SDC 09:53 → AC 09:54
PROVIDERS: PCP Family Medicine; Referring Provider Surgery; Visit Provider Surgery
PROC: (CPT 49650; principal; 2023-04-30 11:10)
DX: K40.90 Unilateral inguinal hernia, without obstruction or gangrene, not specified as recurrent (principal); R05.9 Cough, unspecified
CPT/HCPCS: 49650; S2900; 93005; J7120; J2405

== ENCOUNTER → 2023-05-30 | Outpatient (CLI) | payer BC, SELFPAY ==
--- NOTE | 2023-05-30 14:35 | RAD_ITS ---
STUDY: X-RAY - RIGHT CALCANEUS REASON FOR EXAM: Male, 67 years old. FOOT PAIN TECHNIQUE: 2 views of the right calcaneus were obtained. COMPARISON: None. FINDINGS: Intact visualized calcaneus. There is a small plantar calcaneal spur. There is no demonstrated fracture. RAD/Calcaneus min 2 Views IMPRESSION: Small plantar calcaneal spur. No calcaneal fracture. Electronically Signed: Boris Roth MD at 16:06 EST ,
== END | disposition home or self-care (01) ==
PROVIDERS: PCP Family Medicine; Referring Provider Family Medicine; Visit Provider Family Medicine
DX: M79.673 Pain in unspecified foot (principal)
CPT/HCPCS: 73650

== ENCOUNTER → 2024-04-30 | Outpatient (CLI) | payer BC, SELFPAY ==
[2024-04-30 10:20] LABS: Erythrocyte Sedimentation Rate 1 mm/hr (0-20)
[2024-04-30 10:52] LABS: Anion Gap 9 (5-15); BUN 16 mg/dL (7-18); BUN/Creat Ratio 15.2 RATIO (10-20); CRP < 2.90 mg/L (0.0-3.0); Chloride 109 mmol/L (98-107); Cholesterol 148 mg/dL (200); Creatinine, Serum 1.05 mg/dL (0.70-1.30); EST Glomerular Filtration Rate 74 mL/min (>60); Est Glom Filt Rate - Afr Amer 90 mL/min (>60); Glucose 95 mg/dL (74-106); High Density Lipoprotein 55 mg/dL; PSA,Total - Annual Screen 4.23 ng/mL (0.00-4.00); Potassium 4.1 mmol/L (3.5-5.1); Sodium Level 142 mmol/L (136-145); Triglycerides 64 mg/dL; Very Low Density Lipoprotein 13 mg/dL (5-40)
== END | disposition home or self-care (01) ==
LOC: MFPLAB 08:45
PROVIDERS: PCP Family Medicine; Referring Provider Family Medicine; Visit Provider Family Medicine
DX: Z00.00 Encounter for general adult medical examination without abnormal findings (principal); Z87.39 Personal history of other diseases of the musculoskeletal system and connective tissue
CPT/HCPCS: 36415; 80048; 80061; 84153; 85652; 86140; G0103

== ENCOUNTER → 2024-10-13 | Outpatient (CLI) | payer BC, SELFPAY ==
--- NOTE | 2024-10-10 17:10 | LES_PTH ---
PATIENT: JUVE HERMAN LOC: [facility] U#:[id number] AGE/SX: 69/M ROOM: RE10/13/[address]: Dr. Kendall Lance MD : [id number] BED: DIS: 10/13/2024 SPEC #: [id number] RECD: 10/14/24 10:46 STATUS: DONG CAM #: [id number] LIBBY: 10/10/24 17:[address]: Kendall Lance DEPT: SURGICAL PATHOLOGY RECD BY: Wanda Lindsey Tissues: Skin of upper extremity and shoulder Procedures: Surgery Specimen Level IV HEADER OPERATION: Biopsy of lump of left shoulder PRE-OP DIAGNOSIS: Skin neoplasm TISSUE SUBMITTED: A- Left shoulder lump MICROSCOPIC DIAGNOSIS A. Skin, shoulder, left,, biopsy: * Ulcerating atypical melanocytic proliferation pending consultation with dermatopathology Note: The slides will be sent to dermatopathology for consultation and the final report will be issued as an addendum MICROSCOPIC DESCRIPTION Slides are reviewed. GROSS DESCRIPTION A. Received in formalin labeled with the patient's name and date of . Designated as skin neoplasm is a 1.5 x 0.7 x <0.1 cm irregular aviles received in formalin labeled with the patient's name and date of . Designated as devoid of orientation. The resection margin is inked green. Eccentrically on the epidermal surface is a 0.7 x 0.6 cm somewhat ulcerative, hemorrhagic lesion located 0.1 cm from the peripheral edge. The specimen is serially sectioned and entirely submitted in 1 cassette. SD 10/14/2024 CPT:[id number] ADDENDUM ADDENDUM ADDENDUM ADDENDUM ADDENDUM ADDENDUM ADDENDUM ADDENDUM ADDENDUM ADDENDUM 10/21/2024 10:38 ADDENDUM 10/21/2024 10:38 ADDENDUM 10/21/2024 10:38 ADDENDUM 10/21/2024 10:38 ADDENDUM 10/21/2024 10:38 This addendum is added to incorporate an outside pathology consultation report. The case was examined at [facility] by Dr. Hall (#[id number]) and the following diagnosis was rendered. A. Skin, left shoulder, biopsy: Malignant melanoma (see synoptic report in EMR). Please see complete above mentioned consultation report in EMR
[2024-10-13 13:07] LABS: PSA,Total- Diagnostic 2.37 ng/mL (0.00-4.00)
--- OUTSIDE RECORDS SUMMARY | 2024-10-13 15:46 | XMS RPT_ITS | CCD ---
Author Organization [facility] Care Team Providers Care Communications Equipment Installer Name Role Phone Dr. Kendall Vaughan Primary Care Provider [phone] Kendall Vaughan Referring Provider Dr. Jaspreet Urias Attending Provider Kendall Vaughan MD Primary Care Provider KENDALL VAUGHAN Primary Care Unavailable KENDALL VAUGHAN Primary Care Unavailable Dr. Kendall Vaughan Primary Care Provider [phone] Kendall Vaughan Referring Provider Dr. Michael August Attending Provider Dr. Jason Sharif Attending Provider Dr. Michael August Referring Provider Dr. Michael August Other Provider DALLAS Falcon Attending Provider Kendall Vaughan Referring Unavailable Casi, Kendall Attending Unavailable Kendall Vaughan Primary Care Unavailable Kendall Vaughan Primary Care Unavailable Kendall Vaughan Referring Unavailable Casi, Kendall Attending Unavailable Medications Current Medications Medication Drug Class(es) Dates Sig (Normalized) Sig (Original) acetaminophen 325 mg oral tablet (4 sources) Start: 04-30-2023 take 650 mg by mouth every four hours as needed Acetaminophen Active 650 MG PO EVERY 4 HOURS NEEDED 0 April 30, 2023 12:00am Start: 04-03-2023 take 2 capsules by m outh every four hours Acetaminophen (Tylenol) 325 mg capsule Active 650 MG PO Q4H April 03, 2023 12:00am cholecalciferol 0.075 mg oral tablet (2 sources) Vitamin D Start: 12-19-2022 take 75 ug by mouth once daily Cholecalciferol (Vitamin D3) Active 75 MCG PO DAILY December 18, 2022 11:00pm Completed/Discontinued Medications Medication Drug Class(es) Dates Sig (Normalized) Sig (Original) cholecalciferol, vitamin D3, (VITAMIN D3 ORAL) (3 sources) cholecalciferol, vitamin D3, (VITAMIN D3 ORAL) Take by mouth. 0 Active Comment on above: Take by mouth. hydrocortisone 25 mg/ml topical cream (3 sources) Corticosteroid Start: 10-04-2006 apply 15 g topically once daily at bedtime hydrocortisone 2.5 % TOPICAL Crea qhs ears 15 gm 1 10/04/2006 Active Comment on above: qhs ears ketoconazole 200 mg oral tablet (6 sources) Azole Antifungal Start: 10-04-2006 ketoconazole 200 mg ORAL Tab ii now; ii at 7 & 14 days--with orange juice or carbonated beverage 6 0 10/04/2006 Active Start: 10-04-2006 apply 15 g topically once bulmaro y ketoconazole 2 % TOPICAL Crea q day ears 15 gm 1 10/04/2006 Active Comment on above: ii now; ii at 7 & 14 days--with orange juice or carbonated beverage q day ears oxyCODONE hydrochloride 5 mg oral tablet (2 sources) Opioid Agonist Start: 04-30-19 24 End: 05-21-19 24 take 5-10 mg by mouth every four hours as needed Oxycodone Discontinued 5 - 10 MG PO EVERY 4 HOURS NEEDED 10 5 April 30, 2023 May 21, 2023 1:11pm selenium sulfide 25 mg/ml medicated shampoo (3 sources) Start: 10-05-19 apply 4 [oz_av] topically every other day selenium sulfide 2.5 % TOPICAL Sham qod face, chest, back, scalp as second lather--lather, wait 5 minutes, rinse off 4 oz x 2 bottle 3 10/04/2006 Active Comment on above: qod face, chest, ralph k, scalp as second lather--lather, wait 5 minutes, rinse off Problems Active Problems Problem Classification Problem Date Documented Da te Episodic/Chronic Abdominal hernia (5 sources) Inguinal hernia; Translations: [Unilateral inguinal hernia, without obstruction or gangrene, not specified as recurrent] 04-03-2023 Episodic Genitourinary symptoms and ill-defined conditions (1 source) Isaias hematuria; Translations: [Gross hematuria] 12-09-2022 Episodic Past or Other Problems Problem Classification Problem Date Documented Da te Episodic/Chronic Other connective tissue disease (1 source) Pain in unspecified foot; Translations: [Pain in unspecified foot] Onset: 06-05-2023 Episodic Results Test Name Value Interpretation Reference Range Facility Basic Metabolic Profile (BMP )on 04-30-2024 BUN/CRE 15.2 RATIO Normal 10-20 [facility] Comment on above: Performed By: #### L 500.2500, L101.9900, L500.4100, L501.9910, L501.6710 #### [facility] [address] [place], [address] CA,Total 9.0 mg/dL Normal 8.5-10.1 [facility] Comment on above: Performed By: #### L 500.2500, L101.9900, L500.4100, L501.9910, L501.6710 #### [facility] [address] [place], [address] Chloride [Moles/Vol] 109 mmol/L High 98-107 [facility] Comment on above: Performed By: #### L 500.2500, L101.9900, L500.4100, L501.9910, L501.6710 #### [facility] [address] [place], [address] CO2 [Moles/Vol] 24.0 mmol/L Normal 21.0-32.0 [facility] Comment on above: Performed By: #### L 500.2500, L101.9900, L500.4100, L501.9910, L501.6710 #### [facility] [address] [place], [address] Creatinine [Mass/Vol] 1.05 mg/dL Normal 0.70-1.30 [facility] Comment on above: Result Comment: The validity of the calculated GFR GFRAA in patients over 70 years has not been determined. Clinical correlation is essential. Performed By: #### L 500.2500, L101.9900, L500.4100, L501.9910, L501.6710 #### [facility] [address] [place], [address] EST GFR - AA 90 mL/min Normal >60 [facility] Comment on above: Result Comment: Afri can Kitt[place] GFR Calc Performed By: #### L 500.2500, L101.9900, L500.4100, L501.9910, L501.6710 #### [facility] [address] [place], [address] GAP 9 Normal 5-15 [facility] Comment on above: Performed By: #### L 500.2500, L101.9900, L500.4100, L501.9910, L501.6710 #### [facility] [address] [place], [address] GFR/1.73 sq M.predicted among non-blacks MDRD (S/P/Bld) [Vol rate/Area] 74 mL/min/{1.73_m2} Normal >60 [facility] Comment on above: Result Comment: Non- GFR Calc Performed By: #### L 500.2500, L101.9900, L500.4100, L501.9910, L501.6710 #### [facility] [address] [place], [address] Glucose [Mass/Vol] 95 mg/dL Normal 74-106 [facility] Comment on above: Performed By: #### L 500.2500, L101.9900, L500.4100, L501.9910, L501.6710 #### [facility] [address] [place], [address] Potassium [Moles/Vol] 4.1 mmol/L Normal 3.5-5.1 [facility] Comment on above: Performed By: #### L 500.2500, L101.9900, L500.4100, L501.9910, L501.6710 #### [facility] [address] [place], [address] Sodium [Moles/Vol] 142 mmol/L Normal 136-145 [facility] Comment on above: Performed By: #### L 500.2500, L101.9900, L500.4100, L501.9910, L501.6710 #### [facility] [address] [place], [address] Urea nitrogen [Mass/Vol] 16 mg/dL Normal 7-18 [facility] Comment on above: Performed By: #### L 500.2500, L101.9900, L500.4100, L501.9910, L501.6710 #### [facility] [address] [place], [address] CRPon 04-30-2024 C-REACTIVE PROT < 2.90 Normal 0.0-3.0 [facility] Comment on above: Result Comment: C-Re active Protein (CRP) provides useful information for the diagnosis, therapy and monitoring of inflammatory processes and associated diseases. For the evaluation of Relative Risk for Cardiovascular Disease, a High Sensitivity CRP (HSCRP) should be ordered. Performed By: #### L 500.2500, L101.9900, L500.4100, L501.9910, L501.6710 #### [facility] [address] [place], [address] Erythrocyte Sed Rateon 04-30 SED RATE 1 mm/hr Normal 0-20 [facility] Comment on above: Performed By: #### L 500.2500, L101.9900, L500.4100, L501.9910, L501.6710 #### [facility] [address] [place], [address] Lipid Profileon 04-30-2024 Cholesterol [Mass/Vol] 148 mg/dL Normal 200 [facility] Comment on above: Result Comment: <200 mg/dL Desirable 200-240 mg/dL Borderline >240 mg/dL High Risk Performed By: #### L 500.2500, L101.9900, L500.4100, L501.9910, L501.6710 #### [facility] [address] [place], [address] Cholesterol in HDL [Mass/Vol] 55 mg/dL Normal [facility] Comment on above: Result Comment: The drugs N-Acetylcysteine and Metamizole may falsely depress this assay. Reference Range HDL <40 mg/dL Low HDL Cholesterol HDL >or= 60 mg/dL High HDL Cholesterol Performed By: #### L 500.2500, L101.9900, L500.4100, L501.9910, L501.6710 #### [facility] [address] [place], [address] Cholesterol in LDL [Mass/Vol] 80 mg/dL Normal 0-130 [facility] Comment on above: Performed By: #### L 500.2500, L101.9900, L500.4100, L501.9910, L501.6710 #### [facility] [address] [place], [address] Cholesterol in VLDL [Mass/Vol] 13 mg/dL Normal 5-40 [facility] Comment on above: Performed By: #### L 500.2500, L101.9900, L500.4100, L501.9910, L501.6710 #### [facility] [address] [place], [address] Triglyceride [Mass/Vol] 64 mg/dL Normal [facility] Comment on above: Result Comment: The drugs N-Acetylcysteine and Metamizole may falsely depress this assay. Serum Triglycerides Reference Interval Normal <150 mg/dL Borderline high 150 - 199 mg/dL High 200 - 499 mg/dL Very High > or = 500 mg/dL Performed By: #### L 500.2500, L101.9900, L500.4100, L501.9910, L501.6710 #### [facility] [address] [place], [address] PSA,Total - Annual Screenon 04-30-2024 PSA,TOT SCREEN 4.23 ng/mL High 0.00-4.00 [facility] Comment on above: Result Comment: This test was performed using the TPSA assay method for the [employer] chemistry system. Values obtained with different assay methods cannot be used interchangably. When changing PSA assays in the course of monitoring a patient, additional sequential testing should be carried out to confirm baseline values. Performed By: #### L 500.2500, L101.9900, L500.4100, L501.9910, L501.6710 #### [facility] [address] [place], [address] Calcaneus min 2 Viewson 05-04 Calcaneus min 2 Views [facility] Imaging Services [address] [place] [address] Calcaneus min 2 Views MR#: [id number] Acct: [id number] Name: JUVE HERMAN Rep #: [id number] : 1955 M 67 From: Boris Roth MD PCP: Dr. Kendall Vaughan MD Status: [facility] Study: Calcaneus min 2 Views Date of Exam: 05/30/23 Exam# [id number] Ordering Dr: Kendall Vaughan MD -[id number] STUDY: X-RAY - RIGHT CALCANEUS REASON FOR EXAM: Male, 67 years old. FOOT PAIN TECHNIQUE: 2 views of the right calcaneus were obtained. COMPARISON: None. FINDINGS: Intact visualized calcaneus. There is a small plantar calcaneal spur. There is no demonstrated fracture. RAD/Calcaneus min 2 Views IMPRESSION: Small plantar calcaneal spur. No calcaneal fracture. Electronically Signed: Boris Roth MD at 16:06 EST , CC: Dr. Kendall Vaughan MD Robotics Specialist: Signed [facility] 03-12-2023 [facility] Telephone (UCWSTR) ---- JUVE HERMAN ([id number]) 1955 M Date Time Provider Department 03/12/23 DARRYL WEIR RUST During your visit today, we recorded the following information about you: Darryl Weir APRN.[facility] 03/12/2023 7:27 AM Signed Please notify positive for covid. Patient can contact pcp to discuss oral treatment for covid if desired. Mireya Freeman LPN 03/12/2023 9:46 AM Signed Spoke with pt and information listed below given. Pt verbalizes understanding. Mireya Freeman LPN Allergies As of Date: 03/12/2023 (No Known Allergies) Date Reviewed: 03/11/2023 Reviewed by: Zabrina Perdomo LPN - Fully Assessed Reason for Visit: Results [95] Prescriptions as of 03/12/2023 - cholecalciferol, vitamin D3, (VITAMIN D3 ORAL) Take by mouth. - ketoconazole 200 mg ORAL Tab ii now; ii at 7 AND 14 days--with orange juice or carbonated beverage - selenium sulfide 2.5 % TOPICAL Sham qod face, chest, back, scalp as second lather--lather, wait 5 minutes, rinse off - ketoconazole 2 % TOPICAL Crea q day ears - hydrocortisone 2.5 % TOPICAL Crea qhs ears Problem List As Of Date: 03/12/2023 (None) Encounter Status:Closed by MIREYA FREEMAN LPN on 03/12/23 [facility] CNOVon 03-11-2023 CNOV Office Visit (UCWSTR) ---- JVUE HERMAN ([id number]) 1955 M Date Time Provider Department 03/11/23 12:00 PM HAILE WYNNE WSTR During your visit today, we recorded the following information about you: Temperature Pulse Respiration Blood pressure 99.7 degrees 89/minute 20/minute 148/81 Weight 91.6 kg Haile Wynne APRN.DOWEL STICKER OPERATOR 03/11/2023 12:27 PM Signed This note was created using [employer]riter. Subjective Juve Herman is a 67 year old male. 67 year old male with no significant PMH presents for illness. Acute onset yesterday +headache +frontal /10 +nasal congestion +leg cramps and pain +cough +fatigue +fever 103 Denies N/V/D Taking Tylenol The history is provided by the patient. No fixed wing aircraft flight engineer was used. URI He complains of cough. [...] for color change, pallor, rash and wound. Allergic/Immunologi c: Negative for environmental allergies, food allergies and immunocompromised state. Neurological: Positive for headaches. Negative for dizziness and facial asymmetry. Hematological: Negative for adenopathy. Does not bruise/bleed easily. Psychiatric/Behavio ral: Negative for agitation and behavioral problems. Objective [...] sounds. No stridor. No wheezing, rhonchi or ral (more content not included)... Normal [facility] COVID AND INFLUENZA A/B AND RSV NAAT, ROUTINEon 03-11-2023 SARS-CoV-2 (COVID-19) RNA TRENT+probe Ql (Unsp spec) COVID 19 RESULT: Detected The method used is RT-PCR or an equivalent NAAT method. Reference Range (the expected result in uninfected individuals): Not detected INFLUENZA A PCR: Not detected INFLUENZA B PCR: Not detected RSV PCR: Not detected Abnormal [facility] Comment on above: Performed By: #### C VFLRS #### [facility] CLIA [id number] [address] [place], [place] [address] [place] [address] [place] Basophil percentageOrdered B y: Kendall Vaughan on 01-25-2023 Chloride [Moles/Vol] 109 mmol/L 98-107 [facility] Cholesterol [Mass/Vol] 156 mg/dL <200 [facility] Comment on above: <200 mg/dL Desirable 200-240 mg/dL Borderline >240 mg/dL High Risk Glucose [Mass/Vol] 97 mg/dL 74-106 [facility] Potassium [Moles/Vol] 4.3 mmol/L 3.5-5.1 [facility] Sodium [Moles/Vol] 140 mmol/L 136-145 [facility] Triglyceride [Mass/Vol] 54 mg/dL <199 [facility] Comment on above: The drugs N-Acetylcy steine and Metamizole may falsely depress this assay.Serum Triglycerides Reference Interval Normal <150 mg/dL Borderline high 150 - 199 mg/dL High 200 - 499 mg/dL Very High > or = 500 mg/dL Laboratory - Chemistry and C hemistry - challengeOrdered By: Kendall Vaughan on 01-25-2023 CO2 [Moles/Vol] 26.0 mmol/L 21.0-32.0 [facility] Urea nitrogen/Creatinine [Mass ratio] 20.7 mg/mg 01-19 [facility] No Panel InformationOrdered By: Kendall Vaughan on 01-25-2023 Estimated GFR (MDRD) Amer 99 mL/min >60 [facility] Comment on above: GFR Calc Estimated GFR (MDRD) Non-Af Amer 82 mL/min >60 [facility] Comment on above: Non- GFR Calc Prostate Specific Antigen Screen 3.08 ng/mL 0.00-4.00 [facility] Comment on above: This test was perfor med using the TPSA assay method for the[employer] chemistry system. Values obtained with differentassay methods cannot be used interchangably.When changing PSA assays in the course of monitoring apatient, additional sequential testing should be carriedout to confirm baseline values. Serum or plasma calcium yg urement (mass/volume)Ordered By: Kendall Vaughan on 01-25-2023 Calcium [Mass/Vol] 8.7 mg/dL 8.5-10.1 [facility] Serum or plasma cholesterol in HDL measurement (mass/volume)Ordered By: Kendall Vaughan on 01-25-2023 Cholesterol in HDL [Mass/Vol] 52 mg/dL >40 [facility] Comment on above: The drugs N-Acetylcy steine and Metamizole may falsely depress this assay. Reference Range HDL <40 mg/dL Low HDL Cholesterol HDL >or= 60 mg/dL High HDL Cholesterol Serum or plasma cholesterol in VLDL measurement (mass/volume)Ordered By: Kendall Vaughan on 01-25-2023 Cholesterol in VLDL [Mass/Vol] 11 mg/dL 5-40 [facility] Serum or plasma creatinine m easurement (mass/volume)Ordered By: Kendall Vaughan on 01-25-2023 Creatinine [Mass/Vol] 0.97 mg/dL 0.70-1.30 [facility] Comment on above: The validity of the calculated GFR & GFRAA in patients over 70 years has not been determined. Clinical correlation is essential. Serum or plasma low density lipoprotein (LDL) cholesterol measurement (mass/volume)Ordered By: Kendall Vaughan on 01-25-2023 Cholesterol in LDL [Mass/Vol] 93 mg/dL 0-130 [facility] Serum or plasma urea nitroge n measurement (mass/volume)Ordered By: Kendall Vaughan on 01-25-2023 Urea nitrogen [Mass/Vol] 20 mg/dL 7-18 [facility] Thin prep Papanicolaou smear with manual screeningOrdered By: Kendall Vaughan on 01-25-2023 Thin prep Papanicolaou smear with manual screening 5 5-15 [facility] ---- JUVE HERMAN ([id number]) 1955 M Date Time Provider Department 12/10/22 NICOLE HENDERSON RUST During your visit today, we recorded the following information about you: Awais High 12/10/2022 1:47 PM Signed ----- Message from Nicole Henderson APRN.DOWEL STICKER OPERATOR sent at 12/10/2022 1:19 PM EDT ----- Please advise patient the urine culture was negative. Recommend follow up with his PCP to ensure hematuria has resolved. LEXIS Bernard Melissa 12/10/2022 1:49 PM Signed Patient given results and verbalized understanding of instructions given. Awais High Allergies As of Date: 12/10/2022 (No Known Allergies) Date Reviewed: 12/09/2022 Reviewed by: Awais High - Fully Assessed Reason for Visit: Results [95] Prescriptions as of 12/10/2022 - cholecalciferol, vitamin D3, (VITAMIN D3 ORAL) Take by mouth. - ketoconazole 200 mg ORAL Tab ii now; ii at 7 AND 14 days--with orange juice or carbonated beverage - selenium sulfide 2.5 % TOPICAL Sham qod face, chest, back, scalp as second lather--lather, wait 5 minutes, rinse off - ketoconazole 2 % TOPICAL Crea q day ears - hydrocortisone 2.5 % TOPICAL Crea qhs ears Problem List As Of Date: 12/10/2022 (None) Encounter Status:Closed by AWAIS HIGH on 12/10/22 Normal [facility] Bacteria Ur Culton 3 Bacteria identified Cx Nom (U) CULTURE, URINE: No growth (<1,000 CFU/ml) Normal [facility] Comment on above: Performed By: #### 6 30-4 #### [facility] CLIA [id number] [address] [place] [address] [facility] CNOVon 12-09-2022 CNOV Office Visit (UCWSTR) ---- JUVE HERMAN ([id number]) 1955 M Date Time Provider Department 12/09/22 9:15 AM [facility] During your visit today, we recorded the following information about you: Temperature Pulse Respiration Blood pressure 98.4 degrees 72/minute 16/minute 142/92 Weight 90.5 kg Nicole Henderson, RAZA.DOWEL STICKER OPERATOR 12/09/2022 11:02 AM Signed Subjective Hematuria Irritative symptoms do not include frequency or urgency. Pertinent negatives include no abdominal pain, chills, dysuria, fever, flank pain, nausea or vomiting. Juve Herman is a 67 year old male who [...] analgesia. - Discussed expected course of illness LEXIS Bernard Kathy, APRN.CNP 12/09/2022 11:02 AM Addendum ASSESSMENT/PLAN: 1. Gross hematuria - ICD9: 599.71, [...] blood cells in the urine. In microscopic hematuria, the urine appears normal to the naked [...] because hematuria may be the result of (more content not included)... Normal [facility] UA DIP, URINE (POC)on 2022 BILIRUBIN UA (POCT) Small Abnormal Negative [facility] CLARITY UA (POCT) Slightly Cloudy Cl [facility] COLOR UA (POCT) [facility] GLUCOSE UA (POCT) Negative Negative mg/dL [facility] Hemoglobin Ql (U) Large Abnormal Negative [facility] KETONE UA (POCT) Negative Negative mg/dL [facility] LEUKOCYTES UA (POCT) Negative Negative [facility] NITRITE UA (POCT) Negative Negative [facility] PH UA (POCT) 5.0 4.5 - 8.0 [facility] Protein Ql (U) 30 mg/dL Abnormal Negative mg/dL [facility] SPECIFIC GRAVITY UA (POCT) >=1.030 1.005 - 1.030 [facility] UROBILINOGEN UA (POCT) 0.2 E.U./dL Normal E.U./ dL [facility] Bacteria identified Cx Nom ( Wound)on 08-12-2021 Wound Culture Escherichia coli [facility] Work Phone: Gram stain for investigation of transfusion reactionon 08-12-2021 Microscopic observation Gram stain Nom (Unsp spec) [facility] Work Phone: Basophil percentageon 2021 Basophil percentage 0 SEEN /hpf [facility] Work Phone: Bilirubin Test strip Ql (U)o n 07-04-2021 Bilirubin Ql (U) Negative Negative [facility] Work Phone: Ketones Test strip Ql (U)on 07-04-2021 Ketones Ql (U) Negative Negative [facility] Work Phone: Mucus LM Ql (Urine sed)on Mucus Ql (Urine sed) 0 SEEN /hpf [facility] Work Phone: Nitrite Test strip Ql (U)on 07-04-2021 Nitrite Ql (U) Negative Negative [facility] Work Phone: Protein Test strip Ql (U)on 07-04-2021 Protein Ql (U) Negative Negative [facility] Work Phone: Squamous epithelial cells de tection in urine sediment by light microscopyon 07-04-2021 Epithelial cells.squamous LM Ql (Urine sed) 0 SEEN /hpf [facility] Work Phone: Urine blood detectionon RBC Ql (U) Negative Negative [facility] Work Phone: RBC Ql (U) 0 SEEN /hpf [facility] Work Phone: Urine clarityon 07-04-2021 Clarity (U) Clear Clear [facility] Work Phone: Urine color determinationon 07-04-2021 Color (U) Yellow Yellow [facility] Work Phone: Urine glucose detectionon Glucose Ql (U) Normal mg/dl Normal [facility] Work Phone: Urine leukocyte esterase det ection by dipstickon 07-04-2021 Leukocyte esterase Test strip Ql (U) Negative Negative [facility] Work Phone: Urine pHon 07-04-2021 pH (U) 6.0 [pH] [facility] Work Phone: Urine sediment bacteria coun t by microscopy (number/high power field)on 07-04-2021 Bacteria LM.HPF (Urine sed) [#/Area] 0 /[HPF] None Seen [facility] Work Phone: Urine specific gravity measu rementon 07-04-2021 Specific gravity (U) [Rel density] 1.020 [facility] - [place] Work Phone: Urobilinogen Auto test strip Ql (U)on 07-04-2021 Urobilinogen Ql (U) Normal mg/dl Normal [facility] Work Phone: Basophil percentageon 2021 Bilirubin [Mass/Vol] 0.60 mg/dL 0.20-1.00 [facility] Work Phone: Comment on above: For patients on eltr ombopag therapy, use of Dimension Howe TBIL is not recommended. Chloride [Moles/Vol] 109 mmol/L 98-107 [facility] Work Phone: Cholesterol [Mass/Vol] 164 mg/dL <200 [facility] Work Phone: Comment on above: <200 mg/dL Desirable 200-240 mg/dL Borderline >240 mg/dL High Risk Glucose [Mass/Vol] 95 mg/dL 74-106 [facility] Work Phone: Potassium [Moles/Vol] 4.4 mmol/L 3.5-5.1 [facility] Work Phone: Protein [Mass/Vol] 7.3 g/dL 6.4-8.2 [facility] Work Phone: Sodium [Moles/Vol] 139 mmol/L 136-145 [facility] Work Phone: Laboratory - Chemistry and C hemistry - challengeon 07-01-2021 ALP [Catalytic activity/Vol] 63 U/L 45-117 [facility] [place] Work Phone: ALT [Catalytic activity/Vol] 34 U/L 16-61 [facility] [place] Work Phone: CO2 [Moles/Vol] 25.0 mmol/L 21.0-32.0 [facility] [place] Work Phone: Globulin (S) [Mass/Vol] 3.6 g/dL 2.2-4.2 [facility] Work Phone: Urea nitrogen/Creatinine [Mass ratio] 20.1 mg/mg 10-20 [facility] [place] Work Phone: No Panel Informationon 07-01 Estimated GFR (MDRD) Amer 96 mL/min >60 [facility] [place] Work Phone: Comment on above: GFR Calc Estimated GFR (MDRD) Non-Af Amer 80 mL/min >60 [facility] [place] Work Phone: Comment on above: Non- GFR Calc Vitamin D 25-Hydroxy 29.6 ng/mL [facility] Work Phone: Comment on above: Vitamin D 25(OH) Sta tus Range Deficiency <20 ng/mL (50nmol/L) Insufficiency 20 - 30 ng/mL (50 - 75 nmol/L) Sufficiency 30 - 100 ng/mL (75 - 250 nmol/L) Toxicity >100 ng/mL (>250 nmol/L) Serum or plasma albumin yg urement (mass/volume)on 07-01-2021 Albumin [Mass/Vol] 3.7 g/dL 3.2-5.0 [facility] Work Phone: Serum or plasma albumin/glob ulin mass ratioon 07-01-2021 Albumin/Globulin [Mass ratio] 1.0 {ratio} 0.9-2.4 [facility] [place] Work Phone: Serum or plasma calcium yg urement (mass/volume)on 07-01-2021 Calcium [Mass/Vol] 8.7 mg/dL 8.5-10.1 [facility] Work Phone: Serum or plasma cholesterol in HDL measurement (mass/volume)on 07-01-2021 Cholesterol in HDL [Mass/Vol] 51 mg/dL [facility] [place] Work Phone: Comment on above: The drugs N-Acetylcy steine and Metamizole may falsely depress this assay. Reference Range HDL <40 mg/dL Low HDL Cholesterol HDL >or= 60 mg/dL High HDL Cholesterol Serum or plasma creatinine m easurement (mass/volume)on 07-01-2021 Creatinine [Mass/Vol] 1.00 mg/dL 0.70-1.30 [facility] Work Phone: Comment on above: The validity of the calculated GFR & GFRAA in patients over 70 years has not been determined. Clinical correlation is essential. Serum or plasma urea nitroge n measurement (mass/volume)on 07-01-2021 Urea nitrogen [Mass/Vol] 20 mg/dL 7-18 [facility] [place] Work Phone: Thin prep Papanicolaou smear with manual screeningon 07-01-2021 Thin prep Papanicolaou smear with manual screening 18 U/L 15-37 [facility] [place] Work Phone: Thin prep Papanicolaou smear with manual screening 5 5-15 [facility] [place] Work Phone: Serum or plasma severe acute respiratory syndrome coronavirus 2 (SARS-CoV-2) IgG antion 04-25-2021 SARS-CoV-2 (COVID-19) IgG IA Ql > 150.00 INDEX 0.00-0.99 [facility] [place] Work Phone: Comment on above: It is yet undetermin ed what level of antibody to SARS-CoV-2 spike protein correlates to immunity against developing symptomatic SARS-CoV-2 disease. Studies are underway to measure the quantitative levels of specific SARS-CoV-2 antibodies following vaccination. Such studies will provide valuable insights into the correlation between protection from vaccination and antibody levels. Interpretation: Negative < 1.0 Positive > or = 1.0Method: Cloud 66 IM SARS SEMI-QUANT IGG ABS * This test has not been reviewed by the FDA* Use of this test is limited to laboratories that are certified under Clinical Laboratory Improvement Amendments of 1988 (CLIA) to perform high-complexity testing.* Negative results do not preclude acute SARS-CoV-2 infection. If acute infection is suspected, direct testing for SARS-CoV-2 is necessary.* Results from antibody testing should not be used to diagnose or exclude acute SARS-CoV-2 infection.* Positive results may be due to past or present infection with [id number] coronovirus strains, such as coronavirus HKU1, NL63, OC43, or 229E. Vital Signs Date Time Vital Sign Value Performing Clinician Faci lity 04-30-2023 15:34-0500 Body temperature 97.7 [degF] Dr. Kendall Vaughan Work Phone: [facility] [place] 04-30-2023 15:34-0500 Diastolic blood pressure 81 mm[Hg] Dr. Kendall Vaughan Work Phone: [facility] [place] 04-30-2023 15:34-0500 Heart rate 104 /min Dr. Kednall Vaughan Work Phone: [facility] [place] 04-30-2023 15:34-0500 Respiratory rate 16 /min Dr. Kendall Vaughan Work Phone: [facility] [place] 04-30-2023 15:34-0500 SaO2% (BldA) [Mass fraction] 96 % Dr. Kendall Vaughan Work Phone: [facility] [place] 04-30-2023 15:34-0500 Systolic blood pressure 133 mm[Hg] Dr. Kendall Vaughan Work Phone: [facility] [place] 04-30-2023 13:15-0500 Inhaled oxygen flow rate 2 L/min Dr. Kendall Vaughan Work Phone: [facility] [place] 04-30-2023 10:14-0500 Body height 180.[address] Kendall Vaughan Work Phone: [facility] [place] 04-30-2023 10:14-0500 Body mass index (BMI) [Ratio] 27.3 kg/m2 Dr. Kendall Vaughan Work Phone: [facility] [place] 04-30-2023 10:14-0500 Body weight [address] Kendall Vaughan Work Phone: [facility] [place] 04-03-2023 07:54-0500 Body mass index (BMI) [Ratio] 27.8 kg/m2 Dr. Kendall Vaughan Work Phone: [facility] [place] 04-03-2023 07:54-0500 Body weight 90.[address] Kendall Vaughan Work Phone: [facility] [place] 04-03-2023 07:54-0500 Diastolic blood pressure 75 mm[Hg] Dr. Kendall Vaughan Work Phone: [facility] [place] 04-03-2023 07:54-0500 Respiratory rate 16 /min Dr. Kendall Vaughan Work Phone: [facility] [place] 04-03-2023 07:54-0500 Systolic blood pressure 156 mm[Hg] Dr. Kendall Vaughan Work Phone: [facility] [place] 12-09-2022 09:20-0400 Body temperature 98.4 [degF] Nicole Henderson NECKTIE STITCHER.DOWEL STICKER OPERATOR Work Phone: [facility] 12-09-2022 09:20-0400 Body weight 90.54 kg Nicole Henderson NECKTIE STITCHER.DOWEL STICKER OPERATOR Work Phone: [facility] 12-09-2022 09:20-0400 Diastolic blood pressure 92 mm[Hg] Nicole Praisler-Wood NECKTIE STITCHER.[facility] Work Phone: [facility] 12-09-2022 09:20-0400 Heart rate 72 /min Nicole Praisler-Wood NECKTIE STITCHER.[facility] Work Phone: [facility] 12-09-2022 09:20-0400 Respiratory rate 16 /min Nicole Praisler-Wood NECKTIE STITCHER.DOWEL STICKER OPERATOR Work Phone: [facility] 12-09-2022 09:20-0400 SaO2% (BldA) [Mass fraction] 98 % Nicole Praisler-Wood NECKTIE STITCHER.[facility] Work Phone: [facility] 12-09-2022 09:20-0400 Systolic blood pressure 142 mm[Hg] Nicole Praisler-Wood NECKTIE STITCHER.[facility] Work Phone: [facility] 03-19-2022 23:26-0500 Body height 180.34 cm [facility] Work Phone: 03-19-2022 23:26-0500 Body mass index (BMI) [Ratio] 28.8 kg/m2 [facility] [place] Work Phone: 03-19-2022 23:26-0500 Body temperature 97.2 [degF] [facility] Work Phone: 03-19-2022 23:26-0500 Body weight 93.84 kg [facility] Work Phone: 03-19-2022 23:26-0500 Diastolic blood pressure 79 mm[Hg] [facility] [place] Work Phone: 03-19-2022 23:26-0500 Heart rate 98 /min [facility] Work Phone: 03-19-2022 23:26-0500 Respiratory rate 18 /min [facility] Work Phone: 03-19-2022 23:26-0500 Systolic blood pressure 149 mm[Hg] [facility] [place] Work Phone: Encounters Encounter Date Encounter Type Care Provider Facility Start: 05-20-2024 Encounter for genera l adult medical examination without abnormal findings Kendall Vaughan [facility] [place] Start: 04-30-2024 End: 04-30-2024 ambulatory Kendall Vaughan Facility:[facility] [place] Start: 05-30-2023 End: 05-30-[address] Kendall Vaughan Work Phone: [facility] [place] Work Phone: Start: 05-30-2023 End: 05-30-[address] Kendall Vaughan Work Phone: [facility] [place] Work Phone: Start: 05-30-2023 End: 05-30-2023 ambulatory Kendall Vaughan Facility:[facility] [place] Start: 05-21-2023 End: 05-21-[address] Kendall Vaughan Work Phone: [facility] Work Phone: Start: 04-30-2023 Non-patient / Non-visit Dr. Sinan Vaughan Work Phone: [facility] Start: 04-30-2023 End: 04-30-2023 Admission to same day surgery center Dr. Kendall Vaughan Work Phone: [facility] [place] Start: 04-30-2023 End: 04-30-[address] Kendall Vaughan Work Phone: [facility] [place] Work Phone: Start: 04-05-2023 End: 04-05-2023 Non-patient / Non-visit Dr. Kendall Vaughan Work Phone: [facility] Work Phone: Start: 04-03-2023 End: 04-03-[address] Kendall Vaughan Work Phone: [facility] Work Phone: Start: 03-12-2023 Telephone encounter Darryl dumont APRN.DOWEL STICKER OPERATOR Work Phone: [facility] Comment on above: Results Start: 03-11-2023 End: 03-11-2023 ambulatory KENDALL VAUGHAN Facility:[facility] Start: 01-25-2023 End: 01-25-[address] Kendall Vaughan Work Phone: [facility] Start: 12-10-2022 Telephone encounter Nicole Montilla APRN.DOWEL STICKER OPERATOR Work Phone: [facility] Comment on above: Results Start: 12-09-2022 End: 12-09-2022 ambulatory KENDALL VAUGHAN Facility:[facility] Start: 12-09-2022 End: 12-09-2022 Patient encounter procedure Nicole Henderson APRN.DOWEL STICKER OPERATOR Work Phone: [facility] Comment on above: Gross hematuria (Arabella senthil Dx) Start: 03-19-2022 End: 03-20-2022 Emergency department patient visit [facility] [place] Start: 08-12-2021 End: 08-12-[address] [facility] Start: 07-04-2021 End: 07-04-[address] Kendall Vaughan Work Phone: [facility] Start: 07-01-2021 End: 07-01-[address] Kendall Vaughan Work Phone: [facility] Start: 04-25-[address] Kendall juares [facility] Start: 04-25-2021 End: 04-25-[address] Kendall Vaughan Work Phone: [facility] Procedures Date Procedure Procedure Detail Performing Clinician Start: 05-30-2023 Diagnostic radiograp hy of calcaneus Dr. Kendall Vaughan Work Phone: Start: 04-30-2023 Lap Robotic Inguinal Hernia (Right) Dr. Kendall Vaughan Work Phone: Start: 12-09-2022 Urnls dip stick/tabl et rgnt auto w/o microscopy Nicole Henderson APRN.DOWEL STICKER OPERATOR Work Phone: Start: 08-12-2021 Investigation of transfusion reaction Dr. Kendall Vaughan Work Phone: Start: 08-12-2021 Microbial culture, routine Dr. Kendall Vaughan Work Phone: Plan of Treatment Date Care Activity Detail Author Start: 09-01-2031 Urine microalbumin profile DTaP,Tdap,Td Vaccine (3 - Td or Tdap) [facility] Start: 04-30-2023 Laparoscopy surg rpr initial inguinal hernia LAP ING HERNIA REPAIR INIT [facility] [place] Start: 04-30-2023 Patient discharge [facility] [place] Start: 12-01-2022 Influenza vaccination INFLUENZA (#1) [facility] Start: 05-21-2022 COVID-19 VACCINE (5 - Pfizer series) COVID-19 VACCINE (5 - Pfizer series) [facility] Start: 04-02-2022 ADVANCE DIRECTIVE DISCUSSION ADVANCE DIRECTIVE DISCUSSION [facility] Start: 04-02-2022 DEPRESSION ASSESSMENT DEPRESSION ASSESSMENT [facility] Start: 06-23-2019 PNEUMOCOCCAL: 65+ (1 - PCV) PNEUMOCOCCAL: 65+ (1 - PCV) [facility] Start: 2014 RSV Vaccine (1 - 1-dose 60+ series) RSV Vaccine (1 - 1-dose 60+ series) [facility] Start: 2009 PROSTATE CANCER SCREENING DISCUSSION PROSTATE CANCER SCREENING DISCUSSION [facility] Start: 2004 SHINGRIX VACCINE (1 of 2) SHINGRIX VACCINE (1 of 2) [facility] Start: 06-23-1999 COLOGUARD (FIT-DNA) COLOGUARD (FIT-DNA) [facility] Start: 06-23-1999 Colonoscopy COLONOSCOPY [facility] Start: 06-23-1999 COLORECTAL CANCER SCREENING COLORECTAL CANCER SCREENING [facility] Start: 06-23-[address] COLONOGRAPHY [facility] Start: 06-23-1999 DIABETES SCREEN DIABETES SCREEN [facility] Start: 06-23-1999 Diabetes Screening Diabetes Screening [facility] Start: 06-23-1999 FECAL OCCULT BLOOD FECAL OCCULT BLOOD [facility] Start: 06-23-1999 SIGMOIDOSCOPY SIGMOIDOSCOPY [facility] Start: 1989 Lipid 1996 panel - Serum or Plasma Lipid Screening [facility] Start: 1989 LIPID SCREEN LIPID SCREEN [facility] Start: 1973 Urine microalbumin profile DTAP,TDAP,TD (1 - Tdap) [facility] Start: 1972 HEPATITIS C SCREENING HEPATITIS C SCREENING [facility] Bacteria identified in Urine by Culture URINE CULTURE Microbiology Routine Gross hematuria 12/09/2022 10:59 AM EDT [facility] Work Phone: Patient Education ED Skin Avulsion [facility] Work Phone: Patient referral [facility] Work Phone: Immunizations Immunization Date Immunization Notes Care Provider [facility] 06-24-2020 Covid (Pfizer) Dr. Kendall kendall Work Phone: [facility] [place] 06-03-2020 Covid (Pfizer) Dr. Kendall kendall Work Phone: [facility] [place] Payers Date Payer Category Payer Self-pay [id number] 2022 Unknown [employer] PPO OOS [id number] 2022-Present [phone] [id number] [place] [address] PPO [id number] 2010 [id number] Unknown [id number] Unknown [id number] Social History Date Type Detail Facility Start: 04-25-2021 End: 04-03-2023 Tobacco smoking status NHIS Unknown if ever smoked [facility] [place] Start: 1955 Sex Assigned At Male [facility] Start: 03-11-2023 Tobacco smoking stat us NHIS Never smoked tobacco [facility] Work Phone: Start: 10-04-2006 End: 03-11-2023 Alcohol intake Current non-drinker of alcohol (finding) [facility] Start: 1955 Sex Assigned At Not on file [facility] Start: 03-11-2023 Gender identity Not on file [facility] Start: 03-11-2023 Tobacco use and exposure Smokeless tobacco non-user [facility] Start: 03-11-2023 History of Social function [facility] Start: 02-10-2023 Gender identity Identifies as male gender (finding) [facility] Start: 02-10-2023 Sexual orientation Heterosexual (fin ding) [facility] Medical Equipment Procedure Code Equipment Code Equipment Origin al Text Equipment Identifier Dates Extra-gynaecolog ical surgical mesh, composite-polymer [id number] FDA Start: 04-30-2023 Goals Date Patient Goal Desired Activity /State Mental Status Date Assessment Result Facility 04-30-2023 Cognitive function Drowsy [facility] Work Phone: Clinical Notes 12-09-2022 to 04-30-2023 Note Date & Type Note Facility 04-30-2023 Discharge summary Note Date/Time April 30, 2023 12:12pm [facility] Medical Records Department [address] [place] [address] Instructions for Home/Discharge Instructions 04/30/23 1211 MR#: [id number] Acct: [id number] Name: JUVE HERMAN Rep #:[id number] : 1955 67 From: Michael jones MD PCP: Dr. Kendall Vaughan MD Status:REG S DC Discharge Instructions Procedure Hernia Diet Discharge Diet: Light diet - advance as tolerated Activity Discharge Activity: May Not Drive (for 2-3 days or while taking narcotic pain meds.) and May Shower (with the bandage in place 1-2 days after surgery.) Lifting Restrictions: 20 pounds for 4 weeks. Additional Activity Instructions:: Climbing stairs is fine, walking is encouraged. Sitting in bed may be uncomfortable. Sitting up using your lateral muscles (sitting up sideways) is usually more comfortable. Do not drive, work heavy equipment of sign legal documents for 24 hours. If your hernia repair was an inguinal repair, you may have scrotal swelling, an ice pack and/or athletic support can provide more comfort. Pain medications may cause nausea, you should typically eat light foods as you take your pain medications. Pain medications may also cause constipation. If you have difficulty with this, discuss with your doctor. Dressing / Incision Call your doctor if your incision/area has: Continuous Slow Oozing, Sudden Increased Bleeding, Increased Pain/ Swelling, Increased Redness and Foul Smelling Discharge Call your doctor if you observe: Fever of 101 or Higher Suture Line Care: Avoid Pulling/Pushing and Avoid Pinching/Bending Remove Dressing in: 2 days (Remove clear bandages in 2 days, remove Steri-Stripsin 7 to 10 days.) Additional Dressing/Incision Instructions:: Alternate ibuprofen and Tylenol for pain control, oxycodone for breakthrough pain. Follow Up Care Please Follow Up With: Michael August MD When: Please call to schedule 2 week follow up appointment. [phone] Test Results: Test results from this visit will be discussed in further detail at your follow-up appointment, if applicable. Discharge Plan Admission Attending Provider: Michael August Primary Care Provider: Kendall Vaughan Discharge Orders/Prescriptions Prescriptions: New acetaminophen 325 mg Tablet 650 mg PO Q4H PRN PRN (Reason: Pain Or Fever) Qty: 0 0RF oxycodone 5 mg Tablet 5 - 10 mg PO Q4H PRN PRN (Reason: Pain Score 4-10/10) 5 Days Qty: 10 0RF No Action cholecalciferol (vitamin D3) 75 mcg (3,000 unit) tablet 75 mcg PO DAILY acetaminophen [Tylenol] 325 mg capsule 650 mg PO Q4H PRN (Reason: pain) Referrals / Follow Up: Kendall Vaughan MD [Primary Care Provider] - Disposition Disposition (needs filled in before D/C Order can be placed): Home, Self Care 04/30/23 1213<Electronically signed by Michael August MD>Michael August MD CC: Dr. Kendall Vaughan MD ~ Signed [facility] Work Phone: [phone]) 798-355401-29-2024 Procedure [facility] 04-30-2023 History and physical note Author Michael August [facility] April 30, 2023 10:00am Note Date/Time April 30, 2023 1 0:00am [facility] Medical Records Department [address] [place] [address] History & Physical Exam 04/30/23 1000 MR#: [id number] Acct: [id number] Name: JUVE HERMAN Rep #:[id number] : 1955 67 From: Michael jones MD PCP: Dr. Kendall Vaughan MD Status:REG S [place] Location: [place] [address] History and Physical Date of Admission: 04/30/23 Intake Vital Signs 12/19/2312:22 04/03/2406:54 Height 5 ft 1 in 5 ft 11 in Weight: 200 lb 200 lb BMI 37.8 27.8 BP 131/72 H 156/75 H Blood Pressure Location Rt brachial Lt brachial Position Sitting Sitting Respiration 17 16 Pulse 80 Pulse Source Monitor Temp 97.2 F L Temp Source Temporal Pulse Oximetry (%) 99 Oxygen Delivery Method room air Intake Visit Reasons: Update H&P Chief Complaint: right inguinal hernia Combination Presser Required: No Is patient in pain?: No Allergies No Known Allergies Allergy (Verified 04/03/23 07:54) Medications cholecalciferol (vitamin D3) 75 mcg (3,000 unit) tablet 75 mcg PO DAILY 12/19/22[History Confirmed 04/03/23] PFSH Medical History Biceps tendon tear Inguinal hernia Family History Father Cancer prostate Social History Smoking Status: Never smoker substance use type: does not use HPI HPI HPI: Patient is here to update his history and physical before hernia surgery. Patient has right inguinal hernia reports there is been no changes with his hernia. He does have a chronic cough since his last illness at [facility]. Patient also notes that he is going to see a dentist this week for broken tooth. Patient still notes reducible right inguinal hernia with no symptoms on the left side. ROS General General: No weight change, appetite, fatigue, colon cancer, breast cancer or weakness HEENT HEENT: No difficulty swallowing, eye injury, eye surgery, swollen glands or hoarseness Endo Endocrine: No thyroid disease, diabetes mellitus, thyroid cancer, Hair loss, heat intolerance or cold intolerance Skin Skin: No rash or changing moles Musc Musculoskeletal: No back problems, arthritis, rheumatoid arthritis, gout or joint pain Cardio Cardiovascular: No murmur, pacemaker, heart disease, atrial fibrillation, high blood pressure, heart attack, heart stent, palpitations, shortness of breat withexertion or chest pain Psych Psychiatric: No depression, anxiety or hearing voices Resp Respiratory: No shortness of breath, No sleep apnea, No cough, No COPD, No asthma, No emphysema and No wheezing Gastro Gastrointestinal: No abdominal pain, No nausea or vomiting, No diarrhea, No constipation, No blood in stool, No acid reflux, No hemorrhoids, No ulcers, No gallbladder problem and No black,tarry stools Kelechi Hematologic: No blood thinners, No blood disorders, No bleeding, No anemia and No blood clots Neuro Neurologic: No system reviewed and no additional complaints, except as documented, No as per HPI, No abnormal gait, No abnormal hearing, No abnormal movements, No abnormal speech, No behavioral changes, No burning sensations, No confusion, No convulsions, No disequilibrium, No dizziness, No localized weakness, No frequent falls, No headache(s), No lack of coordination, No loss ofvision, No memory loss, No numbness, No other visual disturbances, No radicular pain, No restless legs, No sensory deficit, No syncope, No tingling, No tremor(s), No weakness and No other Exam Const General: cooperative Orientation: alert and oriented x3 HENMT Head: normal to inspection Neck Neck: normal visual inspection and full ROM Chest Chest palpation & inspection: normal inspection of the chest Resp Effort & Inspection: normal respiratory effort Auscultation: clear to auscultation bilaterally Cardio Rate: regular rate Rhythm: regular rhythm GI Inspection: non-distended Palpation: soft, hernia indirect inguinal on the right and nontender Skin General: no rashes or lesions noted Neuro General: patient alert and patient oriented x3 Extrem General: full ROM Psych Appearance: grossly normal Mental Status: mental status grossly normal Assessment and Plan Assessment and Plan (1) Inguinal hernia: Status: Acute Qualifiers: Obstruction and gangrene presence: without obstruction or gangrene Laterality: unilateral Recurrence: non-recurrent Qualified Code(s): K40.90 - Unilateral inguinal hernia, without obstruction or gangrene, not specified as recurrent Plan: The patient has a right inguinal hernia which is reducible. He was waiting until winter to have this fixed and he presents for updated the H&P before surgery. I discussed robotic assisted laparoscopic right inguinal hernia repairwith mesh once more with the patient. I answered all of his questions. I will plan for surgery later this month. Michael August MD Pager: [facility] [address] [place] [address], [address] [place] [address] Office: I have examined the patient and the H&P has been reviewed. There are no clinicalchanges since date of exam. 04/30/23 1000 <Electronically signed by Michael August MD> Cosigner Signature (if applicable): CC: Dr. Michael August MD; Dr. Kendall Vaughan MD~ Signed [facility] Work Phone: [phone]) 236-533512-11-2023 Miscellaneous Notes* Telephone Encounter - Mireya Freeman LPN - 03/12/2023 9:46 AM EST Spoke with pt and information listed below given. Pt verbalizes understanding. Mireya Freeman LPN * Telephone Encounter - Darryl Weir APRN.CNP - 03/12/2023 7:27 AM EST Please notify positive for covid. Patient can contact pcp to discuss oral treatment for covid if desired. documented in this encounterW[facility]12-[facility]-2023 NoteHNO ID: [id number] Author: Haile Wynne APRN.DARLING Service: ? Author Type: Nurse Practitioner Type: Progress Notes Filed: 03/11/2023 12:27 PM Note Text: This note was created using [employer]riter. Subjective Juve eHrman is a 67 year old male. 67 year old male with no significant PMH presents for illness. Acute onset yesterday +headache +frontal 10/09 +nasal congestion +leg cramps and pain +cough +fatigue +fever 103 Denies N/V/D Taking Tylenol The history is provided by the patient. No fixed wing aircraft flight engineer was used. URI He complains of cough. [...] hernia is present. Musculoskele (more content not included)...[facility]09-10-2023 Miscellaneous Notes* Telephone Encounter - Awais High - 12/10/2022 1:48 PM EDT Patient given results and verbalized understanding of instructions given. Awais High * Telephone Encounter - Awais High - 12/10/2022 1:47 PM EDT ----- Message from Nicole Henderson APRN.CNP sent at 12/10/2022 1:19 PM EDT ----- Please advise patient the urine culture was negative. Recommend follow up with his PCP to ensure hematuria has resolved. Nicole Henderson APRN.CNP documented in this encounterWexner Medical Center09-09-2023 NoteHNO ID: [id number] Author: Nicole Henderson APRN.CNP Service: ? Author Type: Nurse Practitioner Type: Progress Notes Filed: 12/09/2022 11:02 AM Note Text: Subjective Hematuria Irritative symptoms do not include frequency or urgency. Pertinent negatives include no abdominal pain, chills, dysuria, fever, flank pain, nausea or vomiting. Juve Herman is a 67 year old male who [...] Discussed expected course of illness Nicole Henderson APRN.CNPGreene [facility]09-09-2023 Instructions* Patient Instructions* Nicole Henderson APRN.CNP - 12/09/2022 10:58 AM [...] blood cells in the urine. In microscopic hematuria, the urine appears normal to the naked eye, but examination with a microscope shows a number of red blood cells. Gross hematuria can be seen with the naked eye-the urine is red, pink, or the color of cola. What causes hematuria? Several conditions can cause hematuria. For example, exercise may cause hematuria that goes away in24 hours. Many people have hematuria without any [...] that signal a urinary tract infection or casts,which are groups of cells molded together in [...] urethra. A cystoscope may provide a better viewof a tumor or bladder stone than can be seen in an IVP. How is hematuria treated? Treatment for hematuria depends on the cause. If no serious condition is causing the hematuria, no treatment is necessary. documented in this encounterWexner Medical Center09-09-2023 History of Present illness Narrative* Nicole Henderson APRN.DARLING - 12/09/2022 9:38 AM EDT Subjective Hematuria Irritative symptoms do not include frequency or urgency. Pertinent negatives include no abdominal pain, chills, dysuria, fever, flank pain, nausea or vomiting. Juve Herman is a 67 year old male who presents with blood in his urine. This happened last night after running for 3 miles then going for a walk. He denies any symptoms other than hematuria and thatseems to be resolving, states his urine is [...] is no right CVA tenderness, left CVA tendernessor guarding. Skin: General: Skin is warm and [...] Discussed expected course of illness Nicole Henderson APRN.DARLING documented in this encounterSelect [facility] noteNo assessment information availableWSelect [facility] Work Phone: Evaluation note* Diagnosis Gross hematuria- Primary documented in this encounter [facility] note* Diagnosis Onset Date Resolution Status Inguinal hernia acute [facility] Work Phone: Evaluation note* Diagnosis Onset Date Resolution Status Inguinal hernia acute Inguinal hernia [facility] Work Phone: Chief Complaint and Reason for Visit Chief Complaint AB TEST HRA LABWORK COVID AB TESTING Chief Complaint FINGER INJURY Chief Complaint Update H&P PREOP Lap Robotic Inguinal Hernia with me Lap Robotic Inguinal Hernia with me Reason for Visit Inguinal hernia Chief Complaint Update H&P PREOP Lap Robotic Inguinal Hernia with me Lap Robotic Inguinal Hernia with me HERNIA 04-30 Reason for Visit Inguinal hernia Inguinal hernia Advance Directives No Advanced Directives Records Found Advance Directive Response Recorded Date/ Time Living Will No March 19, 2 022 11:53pm Power of Director Of Automation No March 19, 2022 11:53pm Advance Directive Response Recorded Date/ Time Name of Medical Power of Director Of Automation CHILDREN April 03, 2023 2:21pm Living Will No April 03 2:21pm Power of Director Of Automation Yes April 03, 2 024 2:21pm Health Concerns Infection Onset Date Last Indicated Resolved Time COVID-19 Confirmed 03/11/2023 03/11/2023 Summary Purpose Family History No Family History Records Found Relationship Condition Age at Onset Recorded Date/T angela father Malignant neoplasm Unknown Additional Source Comments Goals (unrecognized section and content) Goals may be documented in a n alternate sectionGoals may be documented in an alternate sectionGoals may be documented in an alternate section Source Comments (unrecognize d section and content) In the event this informatio n is protected by the Federal Confidentiality of Alcohol and Drug Abuse Patient Records regulations: The Federal rules restrict any use of the information to criminally investigate or prosecute any alcohol or drug abuse patient.[facility] CenterIn the event this information is protected by the Federal Confidentiality of Alcohol and Drug Abuse Patient Records regulations: The Federal rules restrict any use of the information to criminally investigate or prosecute any alcohol or drug abuse patient.[facility] CenterIn the event this information is protected by the Federal Confidentiality of Alcohol and Drug Abuse Patient Records regulations: The Federal rules restrict any use of the information to criminally investigate or prosecute any alcohol or drug abuse patient.[facility] Reason for Visit (unrecogniz ed section and content) Reason Comments Hematuria x last night after a 3 mile run Reason Comments Results Care Teams (unrecognized sec tion and content) Communications Equipment Installer Relationship Specialty Start Date End Date Kendall Vaughan MD [address] [facility] [address] [place] [address] PCP - General Family Medicine 12/09/22 Communications Equipment Installer Relationship Specialty Start Date End Date Kendall Vaughan MD [address] [facility] [address] [place], [place] [id number] PCP - General Family Medicine 12/09/22 Communications Equipment Installer Relationship Specialty Start Date End Date Kendall Vaughan MD [address] [facility] [address] [place] [address] PCP - General Family Medicine 12/09/22 Team Status: Active Member Role Status Dates Dr. Kendall Vaughan MD Family Provider Active Dr. Kendall Vaughan MD Primary Care Provider Active Team Status: Inactive Member Role Status Dates Dr. Kendall Vaughan MD Primary Care Provider, Referring Provider Active Dr. Michael August MD Attending Provider Active Team Status: Active Member Role Status Dates Dr. Kendall Vaughan MD Primary Care Provider Active Dr. Jason Sharif MD Attending Provider Active Dr. Michael August MD Referring Provider Active Team Status: Active Member Role Status Dates Dr. Kendall Vaughan MD Primary Care Provider Active Dr. Michael August MD Attending Pr ovider, Referring Provider, Other Provider Active Team Status: Inactive Member Role Status Dates Dr. Kendall Vaughan MD Primary Care Provider, Attending Provider Active Team Status: Inactive Member Role Status Dates Dr. Kendall Vaughan MD Primary Care Provider Active Dr. Michael August MD Attending Provider, Referr ing Provider Active Team Status: Inactive Member Role Status Dates Dr. Kendall Vaughan MD Primary Care Provider, Referring Provider Active Patience GALO PAYoni Attending Provider Active Team Status: Inactive Member Role Status Dates Dr. Kendall Vaughan MD Primary Care Provi jake, Attending Provider, Referring Provider Active (unrecognized sect ion and content) No Status Records FoundNo Status Records Found INFORMATION SOURCE (unrecogn ized section and content) DATE CREATED AUTHOR 03/13/2023 [facility] DATE CREATED AUTHOR AUTHOR'S ORGANIZ ATION 05/21/2024 [facility] FOR RECORDS PERTAINING TO PATIENTS WHO ARE [...] BE BASED ON THE PRIMARY CLINICAL RECORDS. [employer] [facility]. provides no warranty or guarantee of the accuracy or completeness of information in this document.
== END | disposition home or self-care (01) ==
LOC: MFPLAB 09:37
PROVIDERS: PCP Family Medicine; Referring Provider Family Medicine; Visit Provider Family Medicine
DX: R97.20 Elevated prostate specific antigen [PSA] (principal); D48.5 Neoplasm of uncertain behavior of skin
CPT/HCPCS: 36415; 84153; 88305